=== PATIENT | male | born 1940 | race Caucasian/White ===

== ENCOUNTER 2021-07-18 17:57 | Inpatient (IN) | payer BC, OTHER ==
[~2021-07-18] VITALS: Ht 165.1 cm; Wt 67.6 kg
--- NOTE | 2021-07-18 18:10 | NUR ---
UMA MCLAUGHLIN FROM 4 SEASON C/O VOMITING AND ABNORMAL KUB RESULT. THE PATIENT IS ALERT AND ORIENTED X2. IN ROOM AIR AND DENIES SOB. RESPIRATION REGULAR AND UNLABORED. DENIES PAIN. ATTACHED TO THE MONITOR. WARM BLANKET PROVIDED FOR COMFORT. WILL CONTINUE TO MONITOR THE PATIENT.
--- NOTE | 2021-07-18 18:22 | NUR ---
IV LINE IS ESTABLISHED, BLOOD SPECIMEN COLLECTED AND SENT TO THE LAB. THE LINE IS SALINE LOCKED.
[2021-07-18] MEDS ORDERED: ONDANSETRON HCL/PF 4 MG/2 ML VIAL IVP ONE (18:30)
[2021-07-18 18:36] LABS: BASOPHILS % (AUTO) 0.7 % (0.0-2.0); EOSINOPHILS % (AUTO) 0.4 % (0.0-6.0); HEMATOCRIT 33 % (39-51); HEMOGLOBIN 10.6 g/dL (13.5-17.5); LYMPHOCYTES # (AUTO) 0.5 K/uL (0.8-4.8); LYMPHOCYTES % (AUTO) 6.8 % (20.0-44.0); MEAN CORPUSCULAR HGB CONC 32 g/dl (31.0-36.0); MEAN CORPUSCULAR VOLUME 89 fL (80-96); MONOCYTES # (AUTO) 0.4 K/uL (0.1-1.30); MONOCYTES % (AUTO) 5.2 % (2.0-12.0); NEUTROPHILS # (AUTO) 6.1 K/uL (1.8-8.9); NEUTROPHILS % (AUTO) 86.9 % (43.0-81.0); PLATELET COUNT (AUTO) 258 K/uL (150-450); RED BLOOD CELL COUNT(AUTO) 3.69 MIL/uL (4.5-6.0)
[2021-07-18] MEDS ORDERED: ONDANSETRON HCL/PF 4 MG/2 ML VIAL ONE (18:41)
--- NOTE | 2021-07-18 18:52 | NUR ---
UPDATED JAM ELLIS (ELDEST DAUGHTER)
[2021-07-18 18:58] LABS: ALANINE AMINOTRANSFERASE 13 U/L (12-78); ALBUMIN 1.9 g/dL (3.4-5.0); ALKALINE PHOSPHATASE 229 U/L (46-116); ASPARTATE AMINOTRANSFERASE 28 U/L (15-37); BILIRUBIN,DIRECT 0.2 mg/dL (0.0-0.2); BILIRUBIN,TOTAL 0.3 mg/dL (0.2-1.0); CALCIUM, SERUM 7.9 mg/dL (8.5-10.1); CARBON DIOXIDE 22 mmol/L (21-32); CHLORIDE 109 mmol/L (98-107); CREATININE 2.1 mg/dL (0.6-1.3); GLUCOSE 156 mg/dL (74-106); LIPASE 279 U/L (73-393); SODIUM SERUM 145 mmol/L (136-145); TOTAL PROTEIN, SERUM 6.2 g/dL (6.4-8.2); UREA NITROGEN, BLOOD 38 mg/dL (7-18)
--- NOTE | 2021-07-18 19:07 | NUR ---
GLEASON CATH FR [address] REES`S ORDER.
--- NOTE | 2021-07-18 19:14 | NUR ---
URINE COLLECTED AND SENT TO LAB
--- NOTE | 2021-07-18 19:15 | NUR ---
REPORT GIVEN TO NURSE JACK FOR RADHA
--- NOTE | 2021-07-18 19:54 | NUR ---
CHEN REYNA ON PHONE CALL WITH DR CAPONE
--- NOTE | 2021-07-18 19:57 | NUR ---
INSERTED 16FR NGT TO R NARE AT 60CM; CHECKED PLACEMENT VIA AUSCULTATION AND ASPIRATION. HEARD BUBBLING AND BROWN GI OUTPUT NOTED. ORDERED ABD KUB FOR PLACEMENT.
--- NOTE | 2021-07-18 20:20 | NUR ---
XRAY AT BEDSIDE
[2021-07-18] MEDS ORDERED: MORPHINE SULFATE INJ 2 MG/ML DISP.SYRIN IV PRN (21:00)
[2021-07-18] MEDS ORDERED: ONDANSETRON HCL/PF 4 MG/2 ML VIAL IVP PRN (21:00)
[2021-07-18] MEDS ORDERED: Z GUARD REMEDY 2 OZ OINT TP PRN (21:00)
[2021-07-18] MEDS ORDERED: MAGNESIUM HYDROXIDE 30 ML UDC PO PRN (21:00)
[2021-07-18] MEDS ORDERED: ACETAMINOPHEN 325 MG TABLET PO PRN (21:00)
[2021-07-18] MEDS ORDERED: MAG HYDROX/AL HYDROX/SIMETH 30 ML UDC PO PRN (21:00)
--- NOTE | 2021-07-18 22:54 | NUR ---
COVID RAPID AND PCR TEST TAKEN AND SENT FOR LAB
--- NOTE | 2021-07-18 23:32 | NUR ---
ASSIGNED TO [place] [id number]
--- NOTE | 2021-07-18 23:45 | NUR ---
REPORT GIVEN TO ANDREY ZAYAS FOR RADHA
--- NOTE | 2021-07-18 23:48 | NUR ---
URINE COLLECTED AND SENT TO LAB
--- NOTE | 2021-07-19 00:19 | NUR ---
PT TRANSFERRED TO [facility] VIA ACLS PROTOCOL
[2021-07-19 01:11] VITALS: BP 119/44
--- NOTE | 2021-07-19 01:18 | NUR ---
ADMISSION NOTES PATIENT ARRIVED AT 0015 VIA GURNEY WITH 2 RNS. AOx2. ON RA AND TOLERATING WELL. NO SOB NOTED. NO S/SX OF RESPIRATORY DISTRESS NOTED. IV ACCESS IN LAC #18. 16 MALTESE NG TUBE IN R NARE CONNECTED TO LOW INTERMITTENT SUCTION PER MD ORDER. GLEASON CATHETER IN PLACE DRAINING RED, CLEAR URINE. SAFETY PRECAUTIONS IN PLACE: BED IN LOWEST, LOCKED POSITION, SIDERAILS UPx2, AND BRAKES ON. TABLE AND CALL LIGHT WITHIN REACH. WILL CONTINUE TO MONITOR.
[2021-07-19] MEDS: IV D5/0.45 NACL 1,000 ML IV PRN ×2 (02:01→15:05)
[2021-07-19] MEDS ORDERED: DOCU-141 PO (06:15)
[2021-07-19] MEDS ORDERED: FERR325T28 PO (06:15)
[2021-07-19] MEDS ORDERED: LANS15TA5 PO (06:15)
[2021-07-19] MEDS ORDERED: TAMS-12 PO (06:15)
[2021-07-19] MEDS ORDERED: ATOR80TA PO (06:15)
[2021-07-19] MEDS ORDERED: SENN8.6T19 PO (06:15)
[2021-07-19] MEDS ORDERED: ASPI-1169 PO (06:15)
[2021-07-19] MEDS ORDERED: INSU100V39 SQ (06:15)
[2021-07-19] MEDS ORDERED: MULT-447 PO (06:15)
[2021-07-19] MEDS ORDERED: HYDR-4075 PO (06:15)
[2021-07-19] MEDS ORDERED: LIDOCAINE TD (06:15)
[2021-07-19] MEDS ORDERED: ASCO500C17 PO (06:15)
[2021-07-19] MEDS ORDERED: DIVA-78 PO (06:15)
--- NOTE | 2021-07-19 06:34 | NUR ---
RN CLOSING NOTES PT IN BED, ASLEEP, AWAKENS TO VERBAL STIMULI. AOx2. ON RA AND TOLERATING WELL. NO SOB NOTED. NO S/SX OF RESPIRATORY DISTRESS NOTED. IV ACCESS IN LAC #18. 16 ICELANDIC NG TUBE IN R NARE CONNECTED TO LOW INTERMITTENT SUCTION PER MD ORDER WITH ABOUT 800 ML OF BROWN DRAINAGE. GLEASON CATHETER IN PLACE DRAINING 300 ML OF BLOOD, TINGED, CLEAR URINE. ALL NEEDS MET. PT KEPT CLEAN AND DRY. SAFETY PRECAUTIONS IN PLACE: BED IN LOWEST, LOCKED POSITION, SIDERAILS UPx2, AND BRAKES ON. TABLE AND CALL LIGHT WITHIN REACH. WILL ENDORSE TO ONCOMING SHIFT FOR RADHA.
--- NOTE | 2021-07-19 07:15 | NUR ---
RN NOTE PATIENT OBSERVED ASLEEP IN BED, EASILY WAKEN UP, BREATHING EVEN AND UNLABORED, ON NGT WITH INTERMITTENT SUCTIONING, IV ON LEFT AC GAUGE 18 FLUSHING WELL, ON GLEASON CATHETER DRAINING VIA GRAVITY WITH HEMATURIA NOTED HX OF BPH, SAFETY MEASURE OBSERVED, BED WHEELS LOCK, CALL LIGHT WITHIN REACH, WILL CONTINUE TO MONITOR.
[2021-07-19 08:00] VITALS: BP 120/60
[2021-07-19 08:10] LABS: BILIRUBIN,URINE NEGATIVE (NEGATIVE); COLOR,URINE ORANGE (YELLOW); LEUKOCYTE ESTERASE ,URINE MODERATE (NEGATIVE); NITRITE, URINE NEGATIVE (NEGATIVE); PROTEIN,URINE 30 mg/dl (NEGATIVE); UGLUCOSE NEGATIVE (NEGATIVE); UROBILINOGEN,URINE 0.2 EU/dL (0.2)
[2021-07-19 09:17] LABS: BASOPHILS % (AUTO) 0.3 % (0.0-2.0); EOSINOPHILS % (AUTO) 0.1 % (0.0-6.0); HEMATOCRIT 28 % (39-51); HEMOGLOBIN 9.2 g/dL (13.5-17.5); LYMPHOCYTES # (AUTO) 0.6 K/uL (0.8-4.8); LYMPHOCYTES % (AUTO) 6.8 % (20.0-44.0); MEAN CORPUSCULAR HGB CONC 33 g/dl (31.0-36.0); MEAN CORPUSCULAR VOLUME 89 fL (80-96); MONOCYTES # (AUTO) 0.4 K/uL (0.1-1.30); MONOCYTES % (AUTO) 4.7 % (2.0-12.0); NEUTROPHILS # (AUTO) 8.3 K/uL (1.8-8.9); NEUTROPHILS % (AUTO) 88.1 % (43.0-81.0); PLATELET COUNT (AUTO) 232 K/uL (150-450); RED BLOOD CELL COUNT(AUTO) 3.18 MIL/uL (4.5-6.0); WHITE BLOOD COUNT (AUTO) 9.4 K/uL (4.3-11.0)
[2021-07-19] MEDS: PANTOPRAZOLE 40 MG VIAL IV SCH (09:27)
[2021-07-19 10:26] LABS: RBC,URINE TOO NUMEROUS TO COUN /HPF (0-2)
[2021-07-19 10:27] LABS: BACTERIA,URINE Few /HPF (None Seen); SQUAMOUS EPITHELIAL CELL,UR Few /HPF (None Seen); WBC,URINE 21-50 /HPF (0-3)
[2021-07-19 12:22] LABS: THYROID STIMULATING HORMONE 5.999 uIU/mL (0.358-3.74)
[2021-07-19 13:47] LABS: CARBON DIOXIDE 28 mmol/L (21-32); CHLORIDE 111 mmol/L (98-107); GLUCOSE 135 mg/dL (74-106); MAGNESIUM 2.2 mg/dL (1.8-2.4); PHOSPHORUS 3.7 mg/dL (2.5-4.9); POTASSIUM 3.7 mmol/L (3.5-5.1); SODIUM SERUM 149 mmol/L (136-145)
[2021-07-19 14:51] LABS: PROSTATE SPECIFIC ANTIGEN SCR 3107.29 ng/mL (0.00-4.00)
[2021-07-19 16:52] VITALS: BP 127/61
--- NOTE | 2021-07-19 17:15 | NUR ---
RN NOTE BMP RESULT STILL PENDING AT THIS TIME.
--- NOTE | 2021-07-19 18:50 | NUR ---
RN NOTE PATIENT OBSERVED ASLEEP IN BED, EASILY WAKEN UP, BREATHING EVEN AND UNLABORED, ON NGT WITH INTERMITTENT SUCTIONING, IV ON LEFT AC GAUGE 18 FLUSHING WELL WITH NS @75CC/HR, ON GLEASON CATHETER DRAINING VIA GRAVITY, SAFETY MEASURE OBSERVED, BED WHEELS LOCK, CALL LIGHT WITHIN REACH, WILL ENDORSE TO NOC SHIFT. Addendum: 07/19/21 at 1852 by CHARAN SANDOVAL RN ERROR
--- NOTE | 2021-07-19 18:53 | NUR ---
RN NOTE PATIENT OBSERVED ASLEEP IN BED, EASILY WAKEN UP, BREATHING EVEN AND UNLABORED, ON NGT WITH INTERMITTENT SUCTIONING, IV ON LEFT AC GAUGE 18 FLUSHING WELL WITH D5 1/2NS @75CC/HR, ON GLEASON CATHETER DRAINING VIA GRAVITY, SAFETY MEASURE OBSERVED, BED WHEELS LOCK, CALL LIGHT WITHIN REACH, WILL ENDORSE TO NOC SHIFT.
[2021-07-19 19:10] LABS: CALCIUM, SERUM 8.4 mg/dL (8.5-10.1); CREATININE 1.4 mg/dL (0.6-1.3); UREA NITROGEN, BLOOD 29 mg/dL (7-18)
--- NOTE | 2021-07-19 19:20 | NUR ---
RN OPENING NOTES PATIENT RECEIVED IN BED ALERT AND VERBALLY RESPONSIVE RESPIRATORY EVEN AND UNLABORED, NO SIGN AND SYMPTOMS OF SOB OR DISTRESS, PATIENT IS ON ROOM AIRL, SAT 94%, IV PLACE ON THE LEFT AC #18 RUNNING D5 1/2NS 75ML/HR. PATIENT NOTED WITH NG TUBE INSERTED ON RIGHT NOSTRIL, ON INTERMITTENT SUCTION. PATIENT ON NPO. SAFETY MEASURES IN PLACE BED ALARM ON LOCKED AND IN LOWEST POSITION CALL LIGHT WITHIN REACH WILL CONTINUE TO MONITOR
[2021-07-20] VITALS: BP 127/61
[2021-07-20 04:00] VITALS: BP 138/62
--- NOTE | 2021-07-20 05:30 | NUR ---
RN NOTES PATIENT REFUSED FOR BLOOD DRAW, OFFERED 3X, EXPLAINED RISK AND BENEFITS, STILL REFUSED. WILL ENDORSED TO NEXT SHIFT
[2021-07-20] MEDS: IV D5/0.45 NACL 1,000 ML IV PRN (06:22)
--- NOTE | 2021-07-20 06:52 | NUR ---
RN CLOSING NOTES PATIENT REMAIN STABLE THROUGH OUT THE SHIFT, RESPIRATORY EVEN AND UNLABORED, NO SIGN AND SYMPTOMS OF SOB OR DISTRESS, PATIENT IS ON ROOM AIRL, SAT 94%, IV PLACE ON THE LEFT AC #18 RUNNING D5 1/2NS 75ML/HR. PATIENT ON NPO. SAFETY MEASURES IN PLACE BED ALARM ON LOCKED AND IN LOWEST POSITION CALL LIGHT WITHIN REACH WILL CONTINUE TO MONITOR
--- NOTE | 2021-07-20 08:03 | NUR ---
RN OPENING NOTES PATIENT RECEIVED IN BED ALERT AND VERBALLY RESPONSIVE RESPIRATORY EVEN AND UNLABORED, NO SIGN AND SYMPTOMS OF SOB OR DISTRESS, PATIENT IS ON ROOM AIRL, SAT 97%, IV PLACE ON THE LEFT AC #18 RUNNING D5 1/2NS 75ML/HR. PATIENT NOTED WITH NG TUBE INSERTED ON RIGHT NOSTRIL, ON INTERMITTENT SUCTION. PATIENT ON NPO. SAFETY MEASURES IN PLACE BED ALARM ON LOCKED AND IN LOWEST POSITION CALL LIGHT WITHIN REACH WILL CONTINUE TO MONITOR
[2021-07-20] MEDS: PANTOPRAZOLE 40 MG VIAL IV SCH (08:26)
[2021-07-20 12:00] VITALS: BP 138/62
[2021-07-20] MEDS ORDERED: DIATR MEGLU/DIATRIZOATE SODIUM 120 ML BOTTLE (GASTROGRAPHIN) ONE (13:44)
--- NOTE | 2021-07-20 13:55 | NUR ---
RN NOTES SMALL BOWEL FOLLOW UP STARTED [id number]
--- NOTE | 2021-07-20 18:45 | NUR ---
RN CLOSING NOTES PATIENT REMAINS STABLE THROUGH OUT THE SHIFT, RESPIRATORY EVEN AND UNLABORED, NO SIGN AND SYMPTOMS OF SOB OR DISTRESS, PATIENT IS ON ROOM AIR, SATING 95-100%. PATIENT ON NPO. SAFETY MEASURES IN PLACE, BED ALARM ON, BED LOCKED AND IN LOWEST POSITION, CALL LIGHT WITHIN REACH. WILL ENDORSE TO HIGHWAY ENGINEERING TECHNICIAN NURSE. Addendum: 07/20/21 at 1857 by ROBBIN RICKETTS RN NURSING SIGNAL PERSON NOTIFIED ABOUT MIDLINE. WILL ENDORSE TO HIGHWAY ENGINEERING TECHNICIAN NURSE.
--- NOTE | 2021-07-20 19:25 | NUR ---
RN NOTE PT RECEIVED IM BED. PT IS ALERT AND ORIENTED X2-3. PT CURRENTLY ON ROOM AIR SHOWING NO S/S OF RESP DISTRESS/SOB. BREATHING EVEN AND UNLABORED. GLEASON CATH NOTED. CURRENTLY NPO. ALL SAFETY MEASURES IMPLEMENTED. CALL LIGHT WITHIN REACH. BED ALARM ON. BED LOCKED AND IN LOWEST POSITION. SIDE RAILS UP. WILL CONTINUE TO MONITOR AND ASSESS FOR ANY CHANGES DURING SHIFT,.
[2021-07-20 20:00] VITALS: BP 127/55
[2021-07-21 04:00] VITALS: BP 137/58
[2021-07-21] MEDS: IV D5/0.45 NACL 1,000 ML IV PRN (05:47)
--- NOTE | 2021-07-21 06:59 | NUR ---
RN NOTE NO CHANGES IN PT CONDITION DURING SHIFT. PT CURRENTLY ON ROOM AIR SHOWING NO S/S OF RESP DISTRESS/SOB. BREATHING EVEN AND UNLABORED. PT IS ALERT AND ORIENTED X2-3. IV ACCESS NOTED ON RIGHT FOREARM #22, LINE FLUSHED, PATENT, AND INTACT WITH NO SIGNS OF INFILTRATION. D51/2 NS RUNNING AT 75 ML/HR. PT TOLERATING WELL. CURRENTLY WAITING FOR MIDLINE PLACEMENT. ALL DUE MEDS GIVEN ORDERED. PT KEPT CLEAN AND COMFORTABLE. ALL SAFETY MEASURES IMPLEMENTED. CALL LIGHT WITHIN REACH. BED ALARM ON. BED LOCKED AND IN LOWEST POSITION. SIDE RAILS UP. WILL ENDORSE TO MORNING SHIFT RN FOR RADHA.
--- NOTE | 2021-07-21 07:25 | NUR ---
RN OPENING NOTES PATIENT RECEIVED IN BED SLEEPING BREATHING EVEN AND UNLABORED, NO SIGN AND SYMPTOMS OF SOB OR DISTRESS, PATIENT IS ON ROOM AIR. IV ACCESS ON THE RIGHT FOREARM #22, INTACT AND PATENT INFUSING D5 1/2NS 75ML/HR. NO S/S OF INFILTRATION. PATIENT NOTED WITH NG TUBE INSERTED ON INTERMITTENT SUCTION. PATIENT ON NPO. GLEASON CATH INTACT, DRAINING WELL. SAFETY MEASURES IMPLEMENTED. BED ALARM ON LOCKED AND IN LOWEST POSITION CALL LIGHT WITHIN REACH WILL CONTINUE TO MONITOR.
[2021-07-21] MEDS: PANTOPRAZOLE 40 MG VIAL IV SCH (08:57)
[2021-07-21] MEDS: FOLIC ACID 1 MG TABLET PO SCH (09:00)
[2021-07-21] MEDS: MUPIROCIN OINT 2% 22 GM TUBE TP SCH ×2 (10:39→21:31)
[2021-07-21 12:00] VITALS: BP 141/65
[2021-07-21 15:23] LABS: BASOPHILS % (AUTO) 0.4 % (0.0-2.0); EOSINOPHILS % (AUTO) 0.5 % (0.0-6.0); HEMATOCRIT 25 % (39-51); HEMOGLOBIN 8.3 g/dL (13.5-17.5); LYMPHOCYTES # (AUTO) 0.7 K/uL (0.8-4.8); MEAN CORPUSCULAR HGB CONC 33 g/dl (31.0-36.0); MEAN CORPUSCULAR VOLUME 89 fL (80-96); MONOCYTES # (AUTO) 0.6 K/uL (0.1-1.30); MONOCYTES % (AUTO) 7.7 % (2.0-12.0); NEUTROPHILS # (AUTO) 6.5 K/uL (1.8-8.9); NEUTROPHILS % (AUTO) 82.4 % (43.0-81.0); PLATELET COUNT (AUTO) 197 K/uL (150-450); RED BLOOD CELL COUNT(AUTO) 2.79 MIL/uL (4.5-6.0); WHITE BLOOD COUNT (AUTO) 7.8 K/uL (4.3-11.0)
[2021-07-21 16:00] LABS: CALCIUM, SERUM 7.6 mg/dL (8.5-10.1); CREATININE 0.8 mg/dL (0.6-1.3)
[2021-07-21 16:06] LABS: POTASSIUM 2.4 mmol/L (3.5-5.1)
--- NOTE | 2021-07-21 16:30 | NUR ---
RN NOTE RECEIVED CALL FROM LAB WITH CRITICAL LAB VALUE POTASSIUM OF 2.4. OBTAINED NEW ORDERS PER MD, NOTED AND CARRIED OUT.
[2021-07-21 16:47] LABS: BAND % (MANUAL) 1 % (0.0-5.0); EOSINOPHILS % (MANUAL) 1 % (0-4); LYMPHOCYTES % (MANUAL) 3 % (16-48); MONOCYTES % (MANUAL) 3 % (0-11.0); NEUTROPHILS % (MANUAL) 92 (42-76)
[2021-07-21] MEDS: POTASSIUM CL. PREMIX PERIPHER. 50 ML IV SCH ×5 (16:47→21:28)
--- NOTE | 2021-07-21 18:35 | NUR ---
RN CLOSING NOTES PATIENT REMAINS IN STABLE CONDITION THROUGHOUT SHIFT. PATIENT ALERT/ ORIENTED X 2. BREATHING EVEN AND UNLABORED ON ROOM AIR. IV ACCESS ON RIGHT FOREARM INFUSING D5 1/2 NS @ 75 ML/HT, TOLERATING WELL. PATIENT ON NGT WITH INTERMITTENT SUCTIONING, TOLERATING WELL. ALL DUE MEDS GIVEN ORDERED. GLEASON CATHETER INTACT AND DRAINING WELL. ALL SAFETY MEASURES IN PLACED. BED LOCKED, IN LOWEST POSITION WITH SIDE RAILS UP. CALL LIGHT WITHIN REACH. WILL ENDORSE TO NEXT SHIFT FOR CONTINUITY OF CARE.
--- NOTE | 2021-07-21 19:20 | NUR ---
RN OPENING NOTES PATIENT RECEIVED IN BED ALERT AND VERBALLY RESPONSIVE RESPIRATORY EVEN AND UNLABORED, NO SIGN AND SYMPTOMS OF SOB OR DISTRESS, PATIENT IS ON ROOM AIR, SAT 94%, IV PLACE ON THE RIGHT FORE ARM #22 RUNNING D5 1/2NS 75ML/HR. PATIENT NOTED WITH NG TUBE INSERTED ON RIGHT NOSTRIL, ON INTERMITTENT SUCTION. PATIENT ON NPO. GLEASON CATHETER IN PLACED, INTACT AND DRAINING WELL. SAFETY MEASURES IN PLACE BED ALARM ON LOCKED AND IN LOWEST POSITION CALL LIGHT WITHIN REACH WILL CONTINUE TO MONITOR
[2021-07-21 20:00] VITALS: BP 128/61
--- NOTE | 2021-07-22 01:10 | NUR ---
0110 Report given to MARQUEZ Nolasco for transfer of care with questions answered.
--- NOTE | 2021-07-22 01:30 | NUR ---
RN NOTE RECEIVED PT FROM [facility] TO RM.312-1 ACCOMPANIED BY SET DESIGNER. PT AWAKE, ALERT, DOES NOT VERBALIZE BUT NODS OR SHAKES HEAD AND USES HAND GESTURES. PT ON ROOM AIR, WITH RESPIRATIONS EVEN/UNLABORED. IV ACCESS: L-FA G22 INTACT/PATENT AND FLUSHES WELL. STARTED D5 1/2 NS @75ML/HR ORDERED. APPLIED MARLEY-SLEEVES FOR SKIN PROTECTION AND TO PREVENT FROM PULLING OUT IV. WITH F/C IN PLACE, DRAINING CLEAR NAKIA URINE. PT IN NO ACUTE DISTRESS. SAFETY MEASURES IN PLACE. WILL CONT TO MONITOR. Addendum: 07/22/21 at 0343 by MARILEE TEE RN PT WITH NGT TO INTERMITTENT SUCTION
[2021-07-22] MEDS: IV D5/0.45 NACL 1,000 ML IV PRN (01:56)
[2021-07-22 02:06] VITALS: BP 148/52
[2021-07-22 06:31] LABS: BASOPHILS % (AUTO) 0.6 % (0.0-2.0); HEMATOCRIT 26 % (39-51); HEMOGLOBIN 8.5 g/dL (13.5-17.5); LYMPHOCYTES # (AUTO) 0.8 K/uL (0.8-4.8); LYMPHOCYTES % (AUTO) 10.4 % (20.0-44.0); MEAN CORPUSCULAR HGB CONC 32 g/dl (31.0-36.0); MEAN CORPUSCULAR VOLUME 90 fL (80-96); MONOCYTES # (AUTO) 0.5 K/uL (0.1-1.30); MONOCYTES % (AUTO) 6.2 % (2.0-12.0); NEUTROPHILS # (AUTO) 6.1 K/uL (1.8-8.9); NEUTROPHILS % (AUTO) 81.8 % (43.0-81.0); PLATELET COUNT (AUTO) 193 K/uL (150-450); RED BLOOD CELL COUNT(AUTO) 2.95 MIL/uL (4.5-6.0); WHITE BLOOD COUNT (AUTO) 7.4 K/uL (4.3-11.0)
[2021-07-22 06:50] LABS: CALCIUM, SERUM 8.2 mg/dL (8.5-10.1); CREATININE 0.8 mg/dL (0.6-1.3)
--- NOTE | 2021-07-22 06:55 | NUR ---
RN NOTE NOTED IV PULLED OUT. REINSERTED IV ACCESS TO L-AC #22G WITH GOOD BLOOD RETURN AND HREBER. WELL. Addendum: 07/22/21 at 0657 by MARILEE TEE RN ERROR ON NOTE: REINSERTED IV ACCESS TO R-AC, NOT L-AC
[2021-07-22 07:07] LABS: IMMUNOGLOBULIN A, SERUM 453 mg/dL (61-437); IMMUNOGLOBULIN G, SERUM 943 mg/dL (603-1613); IMMUNOGLOBULIN M, SERUM 51 mg/dL (15-143)
--- NOTE | 2021-07-22 07:10 | NUR ---
RN NOTE PT RESTING IN BED, EASILY AROUSABLE TO STIMULI. A/OX1, OCCASIONALLY VERBALIZES BUT WITH CONFUSION. REORIENTATION PROVIDED. NO S/S OF PAIN NOTED. IV SITE R-AC INTACT/PATENT. NGT INTACT, CONNECTED TO LOW INTERMITTENT SUCTION. F/C INTACT,DRAINING CLEAR YELLOW, OUTPUT 350ML THIS SHIFT. PT IN NO ACUTE DISTRESS. SAFETY MEASURES MAINTAINED. ENDORSED TO NEXT SHIFT NURSE.
--- NOTE | 2021-07-22 07:30 | NUR ---
RN OPEN NOTE PT RECEIVED RESTING IN BED, EASILY AROUSABLE TO STIMULI. A/OX1, WITH CONFUSION. REORIENTATION PROVIDED. NO SOB OR DISTRESS NOTED AT THIS TIME BREATHING EVEN AND UNLABORED, NO S/S OF PAIN NOTED. IV SITE R-AC INTACT/PATENT. NGT INTACT, CONNECTED TO LOW INTERMITTENT SUCTION. F/C INTACT,DRAINING CLEAR YELLOW AND BELOW THE PT, SAFETY MEASURES MAINTAINED. BED LOCKED AND IN LOWEST POSITION WILL CONTINUE TO MONITOR
[2021-07-22 08:00] VITALS: BP 142/68
[2021-07-22 08:09] LABS: POTASSIUM 2.8 mmol/L (3.5-5.1)
[2021-07-22] MEDS: FOLIC ACID 1 MG TABLET PO SCH (08:46)
[2021-07-22] MEDS: PANTOPRAZOLE 40 MG VIAL IV SCH (08:46)
--- NOTE | 2021-07-22 08:48 | NUR ---
PT IS COMBATIVE AND REFUSED THE EXAM. RNKM WILL INFORM THE ORDERING MD.
[2021-07-22] MEDS: BICALUTAMIDE 50 MG TABLET PO SCH (09:00)
[2021-07-22 09:07] LABS: *SPE A/G RATIO 0.7 (0.7-1.7); *SPE ALPHA-1-GLOBULIN 0.3 g/dL (0.0-0.4); *SPE ALPHA-2-GLOBULIN 0.9 g/dL (0.4-1.0); *SPE BETA GLOBULIN 0.9 g/dL (0.7-1.3); *SPE M-SPIKE Not Observed g/dL (Not Observed)
--- NOTE | 2021-07-22 09:45 | NUR ---
RN NOTE PT REFUSED ULTRASOUND FOR THE KIDNEYS DOCTOR IS AWARE, PT IS COMBATIVE AND ALSO REFUSING MEDS, WILL CONTINUE TO MONITOR
[2021-07-22] MEDS: MUPIROCIN OINT 2% 22 GM TUBE TP SCH ×2 (09:54→20:33)
--- NOTE | 2021-07-22 10:00 | NUR ---
RN NOTE POTASSIUM IV STARTED WILL CONTINUE TO MONITOR
[2021-07-22] MEDS: POTASSIUM CL. PREMIX PERIPHER. 50 ML IV SCH ×10 (10:08→23:13)
--- NOTE | 2021-07-22 11:56 | NUR ---
PT NOTE STAT EKG RESULTS GIVEN TO MARQUEZ KRISHNAMURTHY. Addendum: 07/22/21 at 1157 by FRANCESCA HUNT RT RT NOTE
--- NOTE | 2021-07-22 12:00 | NUR ---
m/s wooden shade hardware installer: notes stat ekg done and dr. campbell made aware with no new order.
--- NOTE | 2021-07-22 12:15 | NUR ---
m/s system dispatcher: notes pharmacist notified, spoke to herson re: potassium chloride ivpb with a total of 10 bags. per herson (pharmacist) that she has spoken to dr. campbell and verified with him and says he wants a total of 100meqs.
--- NOTE | 2021-07-22 12:30 | NUR ---
SS Consult: SS consult requested regarding Advanced Directive. The pt. is a 81 year old male admitted to [facility] for symptoms of vomiting & abnormal KUB. BHARATH met with pt. bedside. The pt. is alert & oriented x 3 with recent stoke 2 .5 weeks ago per son. The pt. 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 BHARATH met with pt.'s next of kin/son, Román Ramesh [phone] to discuss advanced healthcare directive. BHARATH educated Román AguirreTheo about it and he stated pt. has initiated the process at [facility]. SW spoke with pt. and pt. expressed that he would like to remain full code and would want his son, Román Guillen to make medical decisions on his behalf int he even that he can no longer make those decisions. Pt. stated he is willing to sign advanced directive to make it official. BHARATH provided Román AguirreTheo with advanced directive & educational material as well as number of mobile notary. Román Guillen expressed understanding. BHARATH also provided [facility] educational material and number to [facility] [phone] Román Guillen thanked BHARATH. Plan: Román AguirreTheo stated the pt. currently is residing at his sister, Sulma Ramesh [phone] home [[address] [place] [phone]] and will be returning there when ready for discharge. Per Román Guillen he does not want to dupree into it and will have pt. completed advanced directive when he is ready. BHARATH wll be available as needed.
--- NOTE | 2021-07-22 15:13 | NUR ---
m/s traffic control officer: general surgeon f/u seen and examined by pat (diesel bus mechanic) at this time with new orders. orders acknowledged.
[2021-07-22 16:00] VITALS: BP 141/72
--- NOTE | 2021-07-22 16:30 | NUR ---
m/s boiler service technician: director of optimization f/u seen by theron (maria luisa) at this time and informed her to call the son for updates.
--- NOTE | 2021-07-22 17:30 | NUR ---
m/s surface miner: notes abby beyer notified re: ct chest/abdomen/pelvis with contrast order for tomorrow and provided consent over the phone with another nurse as a witnessed. per abby beyer, heath (maria luisa) called him and updated him over the phone earlier.
--- NOTE | 2021-07-22 19:00 | NUR ---
m/s fur dressing supervisor: notes bedside report given to ha (rn) and endorse the 3 more bags of potassium chloride to be given.
--- NOTE | 2021-07-22 20:47 | NUR ---
MS RN OPENING NOTE: RECEIVED REPORT AT PATIENT'S BEDSIDE. PATIENT IS COMMUNICATIVE AND VERBALIZING NEEDS EFFECTIVELY. NAD AND VSS AT THIS TIME. NGT TO LOW INTERMITTENT SUCTION OBSERVED. K+ INFUSING TO R AC 22 GAUGE -- SITE IS PATENT, NO S/X OF INFILTRATION OR PHLEBITIS. DENIES N/V. ABD NON-DISTENDED AND BS AUSCULTATED X4. FREQUENTLY USED ITEMS AND CALL LIGHT WITHIN REACH.
[2021-07-22 20:50] VITALS: BP 130/56
--- NOTE | 2021-07-23 00:59 | NUR ---
MS RN NOTES: DISCUSSED WITH PATIENT MD ORDERS FOR CT WITH CONTRAST. PATIENT STATES, "I'M NOT GOING TO SIGN ANYTHING." I EXPLAINED TO THE PATIENT HE HAS RECEIVED A CT SCAN DURING THIS HOSPITALIZATION, THE DIFFERENCE BEING CONTRAST DYE AND THE RISKS OF A SERIOUS REACTION ARE VERY SELDOM AND ARE TREATED WITH MEDICATIONS. PATIENT STATES, "I'LL THINK ABOUT IT." CALL MADE TO PATIENT'S SON (JOON), WENT TO [place]. LEFT A MESSAGE.
--- NOTE | 2021-07-23 03:14 | NUR ---
MS RN NOTES: REVIEWED PATIENT'S PAPER CHART. PATIENT'S SON (RP) CONTACTED BY PREVIOUS SHIFT NURSE. SON CONSENTED TO CT WITH CONTRAST D/T PATIENT'S FLUCTUATING MENTATION/PERIODS OF FORGETFULNESS/CONFUSION.
--- NOTE | 2021-07-23 05:00 | NUR ---
MS RN NOTES: PATIENT SCHEDULED FOR CT WITH CONTRAST THIS AM. CHARGE NURSE ACCESSED IV TO R AC #20 GAUGE AFTER 3RD ATTEMPT FROM OTHER GENERAL CLERK.
--- NOTE | 2021-07-23 05:48 | NUR ---
MS RN NOTE: PATIENT FLAILING ARMS, ADAMANTLY REFUSING BLOOD DRAW FROM ASSOCIATE RELATIONS SPECIALIST FOR AM LABS. "NO MORE!! NO MORE!!"
--- NOTE | 2021-07-23 07:30 | NUR ---
MS RN OPENING NOTES RECEIVED Pt LAYING IN BED AWAKE. Pt IS A/O x 2-3. BREATHING ON ROOM AIR AND TOLERATING WELL. NO COMPLAINTS OF PAIN MADE AT THIS TIME, NO SIGNS OF DISTRESS NOTICED. SAFETY MEASURES ARE IN PLACE: BED IS LOCKED AND IN LOWEST POSITION. SIDE RAILS UP x3. BED ALARM IS ON. CALL LIGHT AND BED SIDE TABLE ARE WITHIN REACH. WILL CONTINUE TO MONITOR THROUGHOUT THE SHIFT.
[2021-07-23 08:00] VITALS: BP 152/59
[2021-07-23] MEDS ORDERED: CT SWABBABLE VALVE TRANS SET 1 EA INFUS.SET MC ONE (08:24)
[2021-07-23] MEDS ORDERED: IOHEXOL-300 100 ML VIAL IV ONE (08:24)
[2021-07-23] MEDS ORDERED: IV NS 0.9% 250 ML IV ONE (08:24)
[2021-07-23] MEDS: BICALUTAMIDE 50 MG TABLET PO SCH ×2 (09:00→09:55)
[2021-07-23] MEDS: FOLIC ACID 1 MG TABLET PO SCH ×2 (09:00→09:55)
[2021-07-23] MEDS: MUPIROCIN OINT 2% 22 GM TUBE TP SCH ×2 (09:55→20:35)
[2021-07-23] MEDS: PANTOPRAZOLE 40 MG VIAL IV SCH (09:58)
[2021-07-23] MEDS ORDERED: PANTOPRAZOLE 40 MG TABLET.DR PO SCH (10:00)
--- NOTE | 2021-07-23 10:10 | NUR ---
MS RN NOTES Pt IS STILL NPO. NO PO MEDS GIVEN THIS AM. WILL CONTINUE TO MONITOR.
[2021-07-23] MEDS: ENOXAPARIN SODIUM 60 MG/0.6 ML DISP.SYRIN SQ SCH ×2 (11:16→21:00)
--- NOTE | 2021-07-23 11:52 | NUR ---
MS RN NOTES Pt REFUSED AM LABS FOR THE SECOND TIME TODAY.
--- NOTE | 2021-07-23 14:41 | NUR ---
MS RN NOTES Pt STILL REFUSING BLOOD DRAW FOR LAB
[2021-07-23 16:00] VITALS: BP 143/62
--- NOTE | 2021-07-23 18:29 | NUR ---
MS RN CLOSING NOTES Pt IS IN BED RESTING. A/x3. BREATHING ON ROOM AIR AND TOLERATING WELL. Pt HAS 2 IV ACCESS ON R AC. PATENT AND INTACT. NO SIGNS OF DISTRESS AT THIS TIME AND NO COMPLAINTS OF PAIN MADE. ALL NEEDS MET. SAFETY MEASURES ARE IN PACE: BED IS LOCKED AND IN LOWEST POSITION, SIDE RAILS UP X 3, CALL LIGHT AND BED SIDE TABLE ARE WITHIN REACH. WILL ENDORSE TO ONCOMING SHIFT.
[2021-07-23 20:00] VITALS: BP 142/50
--- NOTE | 2021-07-23 23:41 | NUR ---
MS RN NOTES LOVENOX NOT ADMIN NO CURRENT LABS AND POSSIBLE THORACENTESIS IN AM.
[2021-07-24] MEDS: IV D5/0.45 NACL 1,000 ML IV PRN (00:53)
--- NOTE | 2021-07-24 06:30 | NUR ---
MS RN CLOSING NOTES Pt IS IN BED RESTING. A/x2-3. BREATHING ON ROOM AIR AND TOLERATING WELL. Pt HAS 2 IV ACCESS. ONE ON R AC AND L FA. THEY ARE PATENT AND INTACT. NO SIGNS OF DISTRESS AT THIS TIME AND NO COMPLAINTS OF PAIN MADE. NG TUBE TO LOW INTERMITTENT SUCTION. ALL NEEDS MET. SAFETY MEASURES ARE IN PACE: BED IS LOCKED AND IN LOWEST POSITION, SIDE RAILS UP X 3, CALL LIGHT AND BED SIDE TABLE ARE WITHIN REACH. WILL ENDORSE TO ONCOMING SHIFT.
--- NOTE | 2021-07-24 07:30 | NUR ---
RN MS NOTES PT IN BED, AWAKE, ALERT AND VERBALLY RESPONSIVE, DENIES PAIN, NOT IN DISTRESS, NGT IN PLACE, NO DRAIN NOTED, CALL LIGHT WITHIN REACH, KEPT WARM AND COMFORTABLE IN BED, F/C IN PLACE.
[2021-07-24 08:00] VITALS: BP 148/59
--- NOTE | 2021-07-24 08:41 | NUR ---
CALLED MARQUEZ PARRA AT 7.[address] AN ORDER FOR INR, PER RN PATIENT REFUSING LABS, FOLLOW UP
[2021-07-24] MEDS: PANTOPRAZOLE 40 MG VIAL IV SCH (08:58)
[2021-07-24] MEDS: ENOXAPARIN SODIUM 60 MG/0.6 ML DISP.SYRIN SQ SCH ×3 (08:58→21:00)
[2021-07-24] MEDS: MUPIROCIN OINT 2% 22 GM TUBE TP SCH ×2 (08:59→21:00)
[2021-07-24] MEDS: FOLIC ACID 1 MG TABLET PO SCH (09:17)
[2021-07-24] MEDS: BICALUTAMIDE 50 MG TABLET PO SCH (09:17)
--- NOTE | 2021-07-24 10:56 | NUR ---
RN MS NOTES RECEIVED ORDER FROM DR. OLGUIN TO CLAMP NGT AND TO START CLEAR LIQUID DIET, INFORMED OF PT'S REFUSAL TO DRAW AM LABS, PT TOLERATES CURRENT DIET AT THIS TIME, NO N/V NOTED.
[2021-07-24 15:56] LABS: BASOPHILS # (AUTO) 0.1 K/uL (0.0-0.2); BASOPHILS % (AUTO) 1.3 % (0.0-2.0); EOSINOPHILS % (AUTO) 1.9 % (0.0-6.0); HEMATOCRIT 29 % (39-51); HEMOGLOBIN 9.5 g/dL (13.5-17.5); LYMPHOCYTES # (AUTO) 0.8 K/uL (0.8-4.8); LYMPHOCYTES % (AUTO) 12.8 % (20.0-44.0); MEAN CORPUSCULAR HGB CONC 32 g/dl (31.0-36.0); MEAN CORPUSCULAR VOLUME 90 fL (80-96); MONOCYTES # (AUTO) 0.4 K/uL (0.1-1.30); MONOCYTES % (AUTO) 5.6 % (2.0-12.0); NEUTROPHILS # (AUTO) 5.1 K/uL (1.8-8.9); NEUTROPHILS % (AUTO) 78.4 % (43.0-81.0); PLATELET COUNT (AUTO) 230 K/uL (150-450); RED BLOOD CELL COUNT(AUTO) 3.26 MIL/uL (4.5-6.0); WHITE BLOOD COUNT (AUTO) 6.5 K/uL (4.3-11.0)
[2021-07-24 16:00] VITALS: BP 123/51
[2021-07-24 16:30] LABS: CARBON DIOXIDE 28 mmol/L (21-32); CHLORIDE 110 mmol/L (98-107); CREATININE 0.8 mg/dL (0.6-1.3); GLUCOSE 82 mg/dL (74-106); POTASSIUM 3.8 mmol/L (3.5-5.1); SODIUM SERUM 147 mmol/L (136-145); UREA NITROGEN, BLOOD 8 mg/dL (7-18)
[2021-07-24 16:34] LABS: MAGNESIUM 1.8 mg/dL (1.8-2.4); PHOSPHORUS 3.2 mg/dL (2.5-4.9)
--- NOTE | 2021-07-24 17:51 | NUR ---
INR 1.72 HIGH FOR THORACENTESIS. JÚNIOR ZAYAS INFORMED TO NOTIFY THE ORDERING MD. PATHOLOGIST NOT AVAILABLE OVER THE WEEKEND, RN WAS INFORMED. LEFT CLAVICLE SOF TISSUE BIOPSY WILL BE DONE ON WEDNESDAY. JÚNIOR ZAYAS WILL INFORM THE ORDERING PHYSICIAN.
--- NOTE | 2021-07-24 18:16 | NUR ---
RN MS NOTES PT IN BED, AWAKE, ALERT AND VERBALLY RESPONSIVE, NO COMPLAINT AT THIS TIME, SEEN BY DR. OLGUIN AND DR. SKINNER, PT STARTED ON CLEAR LIQUID DIET, TOLERATES WELL, NO N/V NOTED, CONSENT GIVEN BY SON JOON RILEY OVER THE PHONE FOR US GUIDED NEEDLE BIOPSY, LOVENOX HELD FOR NOW.
[2021-07-24 18:46] LABS: ALANINE AMINOTRANSFERASE 20 U/L (12-78); ALBUMIN 1.9 g/dL (3.4-5.0); ALKALINE PHOSPHATASE 250 U/L (46-116); ASPARTATE AMINOTRANSFERASE 46 U/L (15-37); BILIRUBIN,TOTAL 0.8 mg/dL (0.2-1.0); TOTAL PROTEIN, SERUM 6.2 g/dL (6.4-8.2)
--- NOTE | 2021-07-24 19:17 | NUR ---
MS RN OPENING NOTES: RECEIVED REPORT AT PATIENT'S BEDSIDE. PATIENT ALERT AND ORIENTED X2, IN NAD AND VSS AT THIS TIME. COMMUNICATIVE AND VERBALIZING NEEDS EFFECTIVELY. NO C/O N/V. NO C/O PAIN. FREQUENTLY USED ITEMS AND CALL LIGHT WITHIN REACH.
[2021-07-24 20:00] VITALS: BP 144/67
[2021-07-25] MEDS: IV D5/0.45 NACL 1,000 ML IV PRN (04:58)
--- NOTE | 2021-07-25 05:32 | NUR ---
MS RN NOTES: I WENT INTO PATIENT'S ROOM AFTER ONLINE MERCHANDISER INFORMED ME PATIENT REFUSING AM BLOOD DRAW. PATIENT ADAMANTLY REFUSING BLOOD DRAW DESPITE RE-APPROACH. PATIENT YELLING, "NO! NO BLOOD!" REPEATEDLY AND FLAILING ARMS.
--- NOTE | 2021-07-25 06:50 | NUR ---
MS RN CLOSING NOTES: \ PATIENT SLEEPING, EYES CLOSED, RR EVEN AND UNLABORED. PATIENT EASILY AGITATED THROUGHOUT THE EVENING. NAD AND VSS AT THIS TIME. R AC #18 RUNNING D5 1/2 NS @ 75ML/HR. NO INFILTRATION AND NO S/SX OF INFECTION TO OR SURROUNDING INSERTION SITE. DRESSING CDI. L FA #18 SL; FLUSHED AND PATENT. NO INFILTRATION. NO S/SX OF INFECTION TO OR SURROUNDING INSERTION SITE. DENIES PAIN. MENTATION FLUCTUATES FROM A&OX2-3. BOWEL SOUNDS NORMOACTIVE X4. BED IN LOW, LOCKED POSITION, IV PUMP AND BED ALARM ON. CALL LIGHT AND FREQUENTLY USED ITEMS WITHIN REACH.
--- NOTE | 2021-07-25 07:27 | NUR ---
RN OPENING NOTE-PATIENT ALERT AND ORIENTED TO PERSON PLACE ONLY, CONFUSED. GLEASON CATHETER TO GRAVITY. NO C/O PAIN. NO DISCOMFORT NOTED. BED LOCKED, LOWEST POSITION, CALL LIGHT WITHIN REACH. MONITOR / ASSIST
[2021-07-25 08:30] VITALS: BP 151/66
[2021-07-25] MEDS: BICALUTAMIDE 50 MG TABLET PO SCH (08:44)
[2021-07-25] MEDS: ENOXAPARIN SODIUM 60 MG/0.6 ML DISP.SYRIN SQ SCH ×3 (08:44→13:51)
[2021-07-25] MEDS: FOLIC ACID 1 MG TABLET PO SCH (08:44)
[2021-07-25] MEDS: PANTOPRAZOLE 40 MG VIAL IV SCH (08:44)
[2021-07-25] MEDS: MUPIROCIN OINT 2% 22 GM TUBE TP SCH ×2 (08:56→21:26)
--- NOTE | 2021-07-25 09:00 | NUR ---
RN NOTE- PT TO HAVE US GUIDED THORACENTESIS . INR 1.72. DR OLGUIN NOTIFIED. HE HAD ME NOTIFY DR IZQUIERDO. SHE ORDERED 2 UN FFP. LAB STATED THEY COULDN'T GET FFP IN TIME FOR NOON CUTOFF / RADIOLOGY. RADIOLOGY STATED THEY HAD TO HAVE PATIENT DOWN THERE BY NOON. DR IZQUIERDO ORDERED PT/INR FOR SUN. TRANSFUSE TWO UNITS FFP SUN NIGHT IF INR <1.5
--- NOTE | 2021-07-25 10:06 | NUR ---
08:00 SPOKE TO RNMELI. PT WAS NOT GIVEN MED TO LOWER INR. HE WILL TEXT ORDERING MD. 09:30 CALLED RN, HE STATED THAT MD ORDERED MEDS TO LOWER INR TO BE ADMINISTERED TOMORROW. RN ALSO STATED THAT MD IS AWARE AND WANTS THORACENTESIS TO BE DONE ON WEDNESDAY. 10:18 RN CALLED AND STATED THAT HE SPOKE TO MD. IZQUIERDO. MD ORDERED PLASMA TO BE GIVEN ON WEDNESDAY AND THORACENTESIS TO BE DONE ON WEDNESDAY. CONTACTED GYROSCOPIC ENGINEERING TECHNICIAN, DANI AT 08:45 TO SCHEDULE THE BIOPSY. PER [facility]. IS CLOSED. PATHOLOGIST AND THE TECHS WILL BE AVAILABLE ON Wednesday07/29/21. THE TIME WILL BE CONFIRMED Wednesday.
[2021-07-25 16:14] VITALS: BP 151/76
--- NOTE | 2021-07-25 18:27 | NUR ---
RN CLOSING NOTE- PT TO HAVE LABS DRAWN Wednesday. PT / INR. CONTINUES ON LOVENOX AT PRESENT PER DEION JIMÉNEZ. DR IZQUIERDO ORDERED 2 U FFP WEDNESDAY NIGHT IF INR > 1.5. PATIENT ALERT AND ORIENTED TO PERSON PLACE ONLY, CONFUSED. GLEASON CATHETER TO GRAVITY. NO C/O PAIN. NO DISCOMFORT NOTED. BED LOCKED, LOWEST POSITION, CALL LIGHT WITHIN REACH. MONITOR / ASSIST
--- NOTE | 2021-07-25 19:43 | NUR ---
MS RN OPENING NOTE PATIENT RECEIVED AWAKE IN BED. A/OX2. NO S/S OF DISTRESS, BREATHING SYMMETRICAL. LFA 18G, RFA 18G BOTH PATENT. SAFETY MEASURES IN PLACE: BED AT LOWEST POSITION, RAILS UP X2, CALL DASILVA WITHIN REACH. WILL CONTINUE TO MONITOR PATIENT.
[2021-07-25 20:00] VITALS: BP 128/55
[2021-07-26] MEDS: ENOXAPARIN SODIUM 60 MG/0.6 ML DISP.SYRIN SQ SCH ×2 (02:00→14:19)
--- NOTE | 2021-07-26 03:59 | NUR ---
MS RN NOTE PATIENT WANTED TO STOP THE IVF (D5 1/2). PATIENT EDUCATION AND ENCOURAGEMENT GIVEN TO PATIENT BUT PATIENT WAS ADAMANT ABOUT NOT RECEIVING ANY FURTHER IVF AT THIS TIME. WILL TRY AGAIN LATER BEFORE END OF SHIFT TO ENCOURAGE THE PATIENT TO RESUME IVF.
--- NOTE | 2021-07-26 06:54 | NUR ---
MS RN CLOSING NOTE PATIENT IS ASLEEP IN BED. A/OX4. NO S/S OF DISTRESS, BREATHING SYMMETRICAL. LFA & RAC 18G IV PATENT. SAFETY MEASURES IN PLACE: BED AT LOWEST POSITION, RAILS UP X2, CALL DASILVA WITHIN REACH. WILL ENDORSE TO NEXT SHIFT FOR RADHA.
--- NOTE | 2021-07-26 07:20 | NUR ---
RN NOTES PATIENT RESTING IN BED, EYES CLOSED, ABLE TO BE AWAKENED. A/O X2, ABLE TO MAKE NEEDS KNOWN. BREATHING EVEN AND UNLABORED, TOLERATING ROOM AIR, NO RESPIRATORY DISTRESS. IV LINE INTACT AND PATENT, IVF INFUSING WELL. GLEASON CATH IN PLACE, DRAINING YELLOW-COLORED URINE. SAFETY MEASURES IN PLACE. WILL CONTINUE TO MONITOR.
[2021-07-26 08:34] VITALS: BP 131/52
[2021-07-26] MEDS: PANTOPRAZOLE 40 MG TABLET.DR PO SCH (08:56)
[2021-07-26] MEDS: FOLIC ACID 1 MG TABLET PO SCH (08:56)
[2021-07-26] MEDS: BICALUTAMIDE 50 MG TABLET PO SCH (08:56)
[2021-07-26] MEDS: MUPIROCIN OINT 2% 22 GM TUBE TP SCH (09:08)
--- NOTE | 2021-07-26 10:34 | NUR ---
RN NOTES PURNIMA, PHARMACY BENEFITS COORDINATOR ONCO, IN THE UNIT TO SEE THE PATIENT.
--- NOTE | 2021-07-26 11:26 | NUR ---
RN NOTES PER COORDINATOR [employer], PATIENT REFUSED BLOOD DRAW FOR LABS TODAY.
--- NOTE | 2021-07-26 14:20 | NUR ---
RN NOTES LOVENOX ABLE TO BE GIVEN TO PATIENT SQ.
[2021-07-26 16:14] VITALS: BP 125/49
--- NOTE | 2021-07-26 19:01 | NUR ---
RN NOTES PATIENT RESTING IN BED, EYES CLOSED, ABLE TO BE AWAKENED. CONTINUES ON ROOM AIR W/ EVEN AND UNLABORED BREATHING, NOT IN ACUTE DISTRESS. IV LINES INTACT AND PATENT, SL. SAFETY MEASURES MAINTAINED. WILL ENDORSE TO STRATEGIC SOURCING SPECIALIST RN FOR RADHA.
[2021-07-26 20:00] VITALS: BP 128/52
--- NOTE | 2021-07-26 20:36 | NUR ---
RECEIVED PATIENT IN BED, ALERT/ORIENTED X2, ROOM AIR, NO COMPLAIN OF PAIN, HOSTILE, HARD OF HEARING, HEARING AIDS X2, LFA AND RAC PERIPHERAL LINE, TKO, GLEASON CATHETER DRAINING WITH CLEAR AND YELLOW URINE, BED ALARM, KEPT SAFE, CALL LIGHT WITHIN REACH.
[2021-07-26] MEDS ORDERED: MUPIROCIN OINT 2% 22 GM TUBE ONE (23:19)
[2021-07-27] MEDS: MUPIROCIN OINT 2% 22 GM TUBE TP SCH ×3 (00:17→21:07)
[2021-07-27] MEDS: ENOXAPARIN SODIUM 60 MG/0.6 ML DISP.SYRIN SQ SCH ×2 (01:02→14:04)
--- NOTE | 2021-07-27 06:00 | NUR ---
RN NOTES PATIENT ALERT/ORIENTED X2, STABLE ON ROOM AIR, UNCOOPERATIVE AT TIMES, GLEASON CATHETER DRAINING WELL, REFUSING AM BLOOD DRAW, FOR THORACENTESIS ON WEDNESDAY, PER ORDER, HOLD LOVENOX IF INR < 1.5. KEPT SAFE, FALL PRECAUTION, ENCOURAGE PATIENT TO COOPERATE WITH CARE.
[2021-07-27] MEDS: PANTOPRAZOLE 40 MG TABLET.DR PO SCH (07:30)
[2021-07-27 08:00] VITALS: BP 144/62
--- NOTE | 2021-07-27 08:00 | NUR ---
RN NOTES PATIENT REFUSED BLOOD DRAW IN AM PER SANDING LINE OPERATOR RN REPORT.
[2021-07-27] MEDS: BICALUTAMIDE 50 MG TABLET PO SCH (08:12)
[2021-07-27] MEDS: FOLIC ACID 1 MG TABLET PO SCH (08:12)
--- NOTE | 2021-07-27 09:12 | NUR ---
RN NOTES PATIENT REFUSED AM MEDS TODAY EXCEPT FOR BACTROBAN SANCHEZ; EXPLAINED IMPORTANCE OF MEDICATION COMPLIANCE BUT PATIENT STILL INSISTED ON REFUSING TO TAKE THEM.
--- NOTE | 2021-07-27 10:37 | NUR ---
RN NOTES PATIENT SEEN BY DEION FELTON ONCO; PER HYPERCIL CORE TRANSFORMER ASSEMBLER, HOLD AM DOSE OF LOVENOX ON 07/28/2021 FOR SCHEDULED PROCEDURE.
[2021-07-27] MEDS: ENSURE ENLIVE 237 ML LIQUID (VANILLA) PO SCH ×2 (13:30→18:00)
[2021-07-27 16:00] VITALS: BP_SYST 128; BP_SYST 129; BP_DIAS 62; BP_DIAS 67
--- NOTE | 2021-07-27 17:45 | NUR ---
RN NOTES FAMILY PREVIOUSLY AT BEDSIDE TO VISIT PATIENT (DTR). PER DTR, HER BROTHER IS POC AND IS AWARE OF PLAN OF CARE.
--- NOTE | 2021-07-27 18:37 | NUR ---
RN NOTES PHOTOENGRAVING SKETCH MAKER AWARE THAT PATIENT REFUSED LABS TODAY. OK IF PATIENT REFUSED TODAY LONG LABS TOMORROW ARE DRAWN BEFORE PROCEDURE, PER PHOTOENGRAVING SKETCH MAKER.
--- NOTE | 2021-07-27 18:50 | NUR ---
RN NOTES PATIENT RESTING IN BED, NOT IN ACUTE DISTRESS. ASSISTED W/ BED MOBILITY TOLERATED. OFFERED SNACKS TO PATIENT BUT REFUSED, REQUESTS AND ABLE TO DRINK [place] SODA FROM DIETARY. GLEASON CATH IN PLACE, DRAINING YELLOW-COLORED URINE. SAFETY MEASURES MAINTAINED. WILL ENDORSE TO SALES REPRESENTATIVE PRINTING RN FOR RADHA.
--- NOTE | 2021-07-27 19:30 | NUR ---
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 PT STABLE ON RA, NO S/S OF DISTRESS OR SOB NOTED, BREATHING EVEN AND UNLABORED. IV ACCES ON LEFT AND RIGHT FOREARM INTACT AND FLUSHING WELL. GLEASON CATHETER IN PLACE, DRAINING DARK YELLOW URINE. PER DAY SHIFT NURSE HOLD AM DOSE OF LOVENOX FOR THORACENTESIS WITH BIOPSY TOMORROW. SAFETY MEASURES IN PLACE: CALL LIGHT WITHIN REACH, SIDE RAILS UP X 3, BED LOCKED IN LOW POSITION, BED ALARM ON. WILL CONTINUE TO MONITOR PATIENT Addendum: 07/28/21 at 0226 by SERA BERGER RN RIGHT FOREARM IV ACCESS RED, SWOLLEN AND PAINFUL FOR PATIENT. REMOVED IV INTACT, MINIMAL BLEEDING, COVERED WITH GAUZE AND PLACE ICE PACK
[2021-07-27 20:00] VITALS: BP 128/62
[2021-07-28] MEDS: ENOXAPARIN SODIUM 60 MG/0.6 ML DISP.SYRIN SQ SCH ×2 (01:22→14:00)
--- NOTE | 2021-07-28 02:00 | NUR ---
MS RN NOTE HELD LOVENOX PER MD ORDER FOR THORACENTESIS WITH BIOPSY TODAY
[2021-07-28 04:00] VITALS: BP 120/40
--- NOTE | 2021-07-28 07:36 | NUR ---
MS RN OPENING NOTE Patient in bed, asleep. A/O x 2. On room air, breathing evenly and unlabored. No SOB or s/s of distress noted. IV access on LFA #18G, intact and patent. Solano catheter in place. Safety measures in place: bed in low, locked position; siderails up x 2; call light within reach. Will continue to monitor.
[2021-07-28 08:00] VITALS: BP 119/50
[2021-07-28] MEDS: PANTOPRAZOLE 40 MG TABLET.DR PO SCH (08:19)
[2021-07-28] MEDS: FOLIC ACID 1 MG TABLET PO SCH (08:21)
[2021-07-28] MEDS: BICALUTAMIDE 50 MG TABLET PO SCH (08:21)
[2021-07-28 12:05] LABS: BASOPHILS % (AUTO) 0.7 % (0.0-2.0); EOSINOPHILS % (AUTO) 1.1 % (0.0-6.0); HEMATOCRIT 28 % (39-51); HEMOGLOBIN 8.9 g/dL (13.5-17.5); LYMPHOCYTES # (AUTO) 0.7 K/uL (0.8-4.8); LYMPHOCYTES % (AUTO) 12.1 % (20.0-44.0); MEAN CORPUSCULAR HGB CONC 32 g/dl (31.0-36.0); MEAN CORPUSCULAR VOLUME 92 fL (80-96); MONOCYTES # (AUTO) 0.3 K/uL (0.1-1.30); MONOCYTES % (AUTO) 6.2 % (2.0-12.0); NEUTROPHILS # (AUTO) 4.3 K/uL (1.8-8.9); NEUTROPHILS % (AUTO) 79.9 % (43.0-81.0); PLATELET COUNT (AUTO) 214 K/uL (150-450); RED BLOOD CELL COUNT(AUTO) 3.02 MIL/uL (4.5-6.0); WHITE BLOOD COUNT (AUTO) 5.4 K/uL (4.3-11.0)
[2021-07-28 12:25] LABS: CALCIUM, SERUM 7.6 mg/dL (8.5-10.1); CREATININE 0.8 mg/dL (0.6-1.3)
--- NOTE | 2021-07-28 13:10 | NUR ---
RN NOTE Received call from [place] from lab, critical value of Potassium 2.8. Dr. Gonsalves informed and ordered potassium replacement for patient.
[2021-07-28 13:11] LABS: POTASSIUM 2.8 mmol/L (3.5-5.1)
[2021-07-28] MEDS ORDERED: POTASSIUM CHLORIDE 20 MEQ TAB.PRT.SR PO ONE (13:30)
[2021-07-28] MEDS: ENSURE ENLIVE 237 ML LIQUID (VANILLA) PO SCH ×2 (13:43→17:44)
--- NOTE | 2021-07-28 14:00 | NUR ---
RN NOTE Held Randix. Patient INR 1.24, procedure to be re-attempted tomorrow morning. MD aware.
[2021-07-28] MEDS ORDERED: BICALUTAMIDE 50 MG TABLET PO SCH (14:30)
--- NOTE | 2021-07-28 14:50 | NUR ---
RN NOTE Radiologist attempted thoracentesis but was not completed, patient was moving too much. Will try procedure again tomorrow, Dr. Champion aware.
[2021-07-28 16:00] VITALS: BP 115/50
--- NOTE | 2021-07-28 19:21 | NUR ---
MS RN CLOSING NOTE Patient in bed, asleep. A/O x 2, [place] with hearing aids on both ears. Stable on room air, no SOB or s/s of distress noted. IV access on LFA #18G, intact and patent. Solano catheter in place draining to a yellow colored urine with an output of 700cc. All needs attended to. Due meds given. Safety measures maintained: bed in low, locked position; siderails up x 2; call light within reach. Will endorse to night warehouse selector nurse for RADHA.
--- NOTE | 2021-07-28 19:30 | NUR ---
MS RN OPENING NOTE RECEIVED PT AWAKE IN BED. A/O X2. HARD OF HEARING WITH HEARING AIDS IN BILATERAL EARS. PT STABLE ON ROOM AIR. NO SOB OR S/S OF RESPIRATORY DISTRESS NOTED. IV ACCESS LFA 18 GAUGE SALINE LOCKED, INTACT AND PATENT. GLEASON CATHETER INTACT. SAFETY PRECAUTIONS IN PLACE. BED IN LOWEST LOCKED POSITION, HOB ELEVATED, SIDE RAILS UP X2, AND CALL LIGHT AND TABLE WITHIN REACH. WILL CONTINUE WITH PLAN OF CARE.
[2021-07-28 20:00] VITALS: BP 128/51
[2021-07-29] MEDS: ENOXAPARIN SODIUM 60 MG/0.6 ML DISP.SYRIN SQ SCH (02:00)
--- NOTE | 2021-07-29 06:59 | NUR ---
MS RN CLOSING NOTE PT AWAKE IN BED. A/O X2. HARD OF HEARING WITH HEARING AIDS IN BILATERAL EARS. PT STABLE ON ROOM AIR. NO SOB OR S/S OF RESPIRATORY DISTRESS NOTED. IV ACCESS LFA 18 GAUGE SALINE LOCKED, INTACT AND PATENT. GLEASON CATHETER INTACT. ALL NEEDS MET AT THIS TIME. SAFETY PRECAUTIONS IN PLACE AT ALL TIMES. BED IN LOWEST LOCKED POSITION, HOB ELEVATED, SIDE RAILS UP X2, AND CALL LIGHT AND TABLE WITHIN REACH. WILL ENDORSE TO ONCOMING NURSE TO [facility].
--- NOTE | 2021-07-29 07:30 | NUR ---
MS RN OPENING NOTES RECEIVED PATIENT AWAKE IN BED. A/O X2. HARD OF HEARING WITH HEARING AIDS IN BILATERAL EARS. PATIENT IS STABLE ON ROOM AIR. NO SOB OR S/S OF RESPIRATORY DISTRESS NOTED. IV ACCESS ON THE LFA 18 GAUGE SALINE LOCKED, INTACT AND PATENT. GLEASON CATHETER INTACT. SAFETY PRECAUTIONS IN PLACE. BED IN LOWEST LOCKED POSITION, HOB ELEVATED, SIDE RAILS UP X2, AND CALL LIGHT AND TABLE WITHIN REACH. WILL CONTINUE TO MONITOR.
[2021-07-29] MEDS: PANTOPRAZOLE 40 MG TABLET.DR PO SCH (07:51)
[2021-07-29 08:00] VITALS: BP 127/51
[2021-07-29] MEDS: FOLIC ACID 1 MG TABLET PO SCH (08:42)
[2021-07-29] MEDS: BICALUTAMIDE 50 MG TABLET PO SCH (08:42)
--- NOTE | 2021-07-29 10:56 | NUR ---
RN NOTES RECEIVED ONE TIME ORDER OF ATIVAN 1MG IV AT [address] OLGUIN.
[2021-07-29] MEDS ORDERED: LORAZEPAM INJ 2 MG/ML VIAL IV ONE (12:00)
[2021-07-29] MEDS: ENSURE ENLIVE 237 ML LIQUID (VANILLA) PO SCH ×2 (12:50→18:03)
[2021-07-29] MEDS ORDERED: DIVALPROEX SODIUM 500 MG TABLET.DR PO SCH (13:00)
[2021-07-29 15:33] LABS: BASOPHILS # (AUTO) 0.1 K/uL (0.0-0.2); BASOPHILS % (AUTO) 1.2 % (0.0-2.0); EOSINOPHILS % (AUTO) 2.4 % (0.0-6.0); HEMATOCRIT 27 % (39-51); HEMOGLOBIN 8.8 g/dL (13.5-17.5); LYMPHOCYTES # (AUTO) 0.8 K/uL (0.8-4.8); LYMPHOCYTES % (AUTO) 17.5 % (20.0-44.0); MEAN CORPUSCULAR HGB CONC 33 g/dl (31.0-36.0); MEAN CORPUSCULAR VOLUME 92 fL (80-96); MONOCYTES # (AUTO) 0.4 K/uL (0.1-1.30); MONOCYTES % (AUTO) 8.3 % (2.0-12.0); NEUTROPHILS # (AUTO) 3.2 K/uL (1.8-8.9); NEUTROPHILS % (AUTO) 70.6 % (43.0-81.0); PLATELET COUNT (AUTO) 203 K/uL (150-450); RED BLOOD CELL COUNT(AUTO) 2.93 MIL/uL (4.5-6.0); WHITE BLOOD COUNT (AUTO) 4.5 K/uL (4.3-11.0)
[2021-07-29 15:55] LABS: ALBUMIN 1.7 g/dL (3.4-5.0); BILIRUBIN,TOTAL 0.3 mg/dL (0.2-1.0); CALCIUM, SERUM 7.8 mg/dL (8.5-10.1); CREATININE 0.8 mg/dL (0.6-1.3); POTASSIUM 3.6 mmol/L (3.5-5.1); TOTAL PROTEIN, SERUM 5.8 g/dL (6.4-8.2)
[2021-07-29 16:00] VITALS: BP 124/62
[2021-07-29] MEDS: SENNOSIDES 8.6 MG TABLET PO SCH (17:25)
[2021-07-29] MEDS: DOCUSATE SODIUM 100 MG CAPSULE PO SCH (17:25)
--- NOTE | 2021-07-29 18:41 | NUR ---
RN NOTES CALLED XANDER DUPREE JR THE SON OF THE PATIENT XANDER DUPREE AT 1755PM AND GOT PERMISSION FOR THE SISTER JAM ELLIS TO BE THE DESIGNATED PERSON WHEN NEEDED TO SIGN THE CONSENT FORMS. THE SON WILL STILL REMAIN THE PRIMARY ONE. ASKED THE PATIENT , HE ALSO AGREED THE DAUGHTER , JAM ELLIS TO SIGN THE CONSENT FORMS.
--- NOTE | 2021-07-29 18:55 | NUR ---
MS RN CLOSING NOTES PATIENT AWAKE IN BED. A/O X2. HARD OF HEARING WITH HEARING AIDS IN BILATERAL EARS. PATIENT IS STABLE ON ROOM AIR. NO SOB OR S/S OF RESPIRATORY DISTRESS NOTED. IV ACCESS ON THE RIGHT HAND #22 GAUGE SALINE LOCKED, INTACT AND PATENT. GLEASON CATHETER INTACT. DAUGHTER JAM ELLIS VISITED THE PATIENT.SAFETY PRECAUTIONS IN PLACE. BED IN LOWEST LOCKED POSITION, HOB ELEVATED, SIDE RAILS UP X2, AND CALL LIGHT AND TABLE WITHIN REACH. WILL ENDORSE INCOMING SHIFT FOR RAD[facility].
--- NOTE | 2021-07-29 19:33 | NUR ---
MS RN OPENING NOTE RECEIVED PT AWAKE IN BED. A/O X2. HARD OF HEARING WITH HEARING AIDS IN BILATERAL EARS. PT STABLE ON ROOM AIR. NO SOB OR S/S OF RESPIRATORY DISTRESS NOTED. IV ACCESS R HAND 22 GAUGE SALINE LOCKED, INTACT AND PATENT. GLEASON CATHETER INTACT. SAFETY PRECAUTIONS IN PLACE. BED IN LOWEST LOCKED POSITION, HOB ELEVATED, SIDE RAILS UP X2, AND CALL LIGHT AND TABLE WITHIN REACH. WILL CONTINUE WITH PLAN OF CARE.
[2021-07-29 20:00] VITALS: BP 132/59
[2021-07-29] MEDS: TAMSULOSIN 0.4 MG CAP.SR.24H PO SCH (21:03)
[2021-07-29] MEDS: ATORVASTATIN 40 MG TABLET PO SCH (21:03)
[2021-07-29] MEDS: DIVALPROEX SODIUM 125 MG CAP.SPRINK PO SCH (22:06)
[2021-07-30] MEDS: DIVALPROEX SODIUM 125 MG CAP.SPRINK PO SCH ×3 (04:08→22:00)
--- NOTE | 2021-07-30 06:51 | NUR ---
MS RN CLOSING NOTE PT AWAKE IN BED. A/O X2. HARD OF HEARING WITH HEARING AIDS IN BILATERAL EARS. PT STABLE ON ROOM AIR. NO SOB OR S/S OF RESPIRATORY DISTRESS NOTED. IV ACCESS R HAND 22 GAUGE SALINE LOCKED, INTACT AND PATENT. GLEASON CATHETER INTACT. ALL NEEDS MET AT THIS TIME. SAFETY PRECAUTIONS IN PLACE AT ALL TIMES. BED IN LOWEST LOCKED POSITION, HOB ELEVATED, SIDE RAILS UP X2, AND CALL LIGHT AND TABLE WITHIN REACH. WILL ENDORSE TO ONCOMING NURSE TO [facility].
--- NOTE | 2021-07-30 07:20 | NUR ---
RN NOTES PATIENT RESTING IN BED, EYES CLOSED, ABLE TO BE AWAKENED. BREATHING EVEN AND UNLABORED, NOT IN ACUTE DISTRESS, ON ROOM AIR. IV LINE INTACT AND PATENT. GLEASON CATH IN PLACE, DRAINING YELLOW-COLORED URINE. SAFETY MEASURES IN PLACE. WILL CONTINUE TO MONITOR.
[2021-07-30 08:00] VITALS: BP 127/51
--- NOTE | 2021-07-30 08:15 | NUR ---
RN NOTES PATIENT SEEN BY DR. OLGUIN; MADE AWARE OF PLAN OF CARE.
[2021-07-30] MEDS: DOCUSATE SODIUM 100 MG CAPSULE PO SCH ×2 (08:21→16:05)
[2021-07-30] MEDS: ASCORBIC ACID 500 MG TABLET PO SCH (08:21)
[2021-07-30] MEDS: FERROUS SULFATE (325 MG) 325 MG/TAB TABLET PO SCH (08:21)
[2021-07-30] MEDS: SENNOSIDES 8.6 MG TABLET PO SCH ×2 (08:21→16:05)
[2021-07-30] MEDS: BICALUTAMIDE 50 MG TABLET PO SCH (08:21)
[2021-07-30] MEDS: FOLIC ACID 1 MG TABLET PO SCH (08:21)
[2021-07-30] MEDS: PANTOPRAZOLE 40 MG TABLET.DR PO SCH (08:21)
[2021-07-30] MEDS: MULTIVIT W/MINERALS 1 TAB TABLET PO SCH (08:21)
[2021-07-30] MEDS ORDERED: LANSOPRAZOLE 15 MG PO SCH (09:00)
--- NOTE | 2021-07-30 10:23 | NUR ---
RN NOTES PATIENT SEEN BY DEION TODD ONCO; PER TAPE TRANSFERRER, OK TO GIVE LOVENOX DOSE TODAY BUT HOLD LOVENOX IN AM OF PROCEDURE.
[2021-07-30] MEDS: ENOXAPARIN SODIUM 60 MG/0.6 ML DISP.SYRIN SQ SCH ×2 (11:04→22:02)
--- NOTE | 2021-07-30 11:14 | NUR ---
RN NOTES LOVENOX SQ GIVEN TODAY. DTR JAM GUNN AT BEDSIDE TO VISIT THE PATIENT.
[2021-07-30] MEDS: ENSURE ENLIVE 237 ML LIQUID (VANILLA) PO SCH ×2 (12:01→17:04)
--- NOTE | 2021-07-30 15:43 | NUR ---
RN NOTES PATIENT SEEN BY DEION MONTERO; NO NEW ORDER AT THIS TIME.
[2021-07-30 16:00] VITALS: BP 128/45
[2021-07-30] MEDS ORDERED: APIXABAN 5 MG TABLET PO SCH (17:00)
--- NOTE | 2021-07-30 19:28 | NUR ---
RN NOTES DTR JAM GUNN AT BEDSIDE W/ PATIENT. BONE MARROW BIOPSY KIT AT MED ROOM IN A BASIN W/ PATIENT LABEL. PATIENT NOT IN ACUTE DISTRESS. SAFETY MEASURES MAINTAINED. ENDORSED TO CARDIOPULMONARY PHYSICAL THERAPIST RN FOR RADHA. PATIENT'S DTR REQUESTS MEDICAL INFORMATION ON PATIENT AND WAS ADVISED TO SEE CHARGE NURSE IN AM TO FILL OUT RELEASE OF MEDICAL INFORMATION FORM. DTR VERBALIZED UNDERSTANDING.
[2021-07-30 20:00] VITALS: BP_SYST 120; BP_SYST 126; BP_DIAS 50
[2021-07-30] MEDS: TAMSULOSIN 0.4 MG CAP.SR.24H PO SCH (22:00)
[2021-07-30] MEDS: ATORVASTATIN 40 MG TABLET PO SCH (22:00)
[2021-07-31] MEDS: DIVALPROEX SODIUM 125 MG CAP.SPRINK PO SCH ×3 (05:51→21:56)
[2021-07-31] MEDS ORDERED: LIDOCAINE 1% INJ 50 ML MDV IJ ONE ×2 (07:00→17:30)
--- NOTE | 2021-07-31 07:45 | NUR ---
MS RN OPENING NOTES RECEIVED PT IN BED ASLEEP, EASY TO AROUSE. ALERT AND ORIENTED X 2, HARD OF HEARING BILATERAL EARS. NO S/SX OF DISTRESS NOTED. NO SOB. BREATHING EVEN AND UNLABORED, TOLERATING WELL ON ROOM AIR. GLEASON CATHETER IN PLACE AND DRAINING YELLOW CLEAR URINE. IV ACCESS ON RHAND 22 INTACT AND PATENT SAFETY MEASURE IN PLACE WITH BED LOCKED AND IN LOWEST POSITION, SR UP X2, CALL LIGHT PLACED WITHIN EASY REACH. WILL CONTINUE TO MONITOR PT FOR CHANGES IN CONDITION.
[2021-07-31 08:00] VITALS: BP 123/45
[2021-07-31] MEDS: ENOXAPARIN SODIUM 60 MG/0.6 ML DISP.SYRIN SQ SCH ×2 (09:00→21:00)
[2021-07-31] MEDS: SENNOSIDES 8.6 MG TABLET PO SCH ×2 (09:19→17:33)
[2021-07-31] MEDS: FERROUS SULFATE (325 MG) 325 MG/TAB TABLET PO SCH (09:19)
[2021-07-31] MEDS: BICALUTAMIDE 50 MG TABLET PO SCH (09:19)
[2021-07-31] MEDS: DOCUSATE SODIUM 100 MG CAPSULE PO SCH ×2 (09:19→17:34)
[2021-07-31] MEDS: ASCORBIC ACID 500 MG TABLET PO SCH (09:19)
[2021-07-31] MEDS: FOLIC ACID 1 MG TABLET PO SCH (09:19)
[2021-07-31] MEDS: MULTIVIT W/MINERALS 1 TAB TABLET PO SCH (09:19)
[2021-07-31] MEDS: PANTOPRAZOLE 40 MG TABLET.DR PO SCH (09:19)
[2021-07-31 11:13] LABS: BASOPHILS % (AUTO) 1.1 % (0.0-2.0); EOSINOPHILS % (AUTO) 2.7 % (0.0-6.0); HEMATOCRIT 27 % (39-51); HEMOGLOBIN 8.9 g/dL (13.5-17.5); LYMPHOCYTES # (AUTO) 0.9 K/uL (0.8-4.8); LYMPHOCYTES % (AUTO) 21.8 % (20.0-44.0); MEAN CORPUSCULAR HGB CONC 33 g/dl (31.0-36.0); MEAN CORPUSCULAR VOLUME 91 fL (80-96); MONOCYTES # (AUTO) 0.3 K/uL (0.1-1.30); NEUTROPHILS # (AUTO) 2.7 K/uL (1.8-8.9); NEUTROPHILS % (AUTO) 67.4 % (43.0-81.0); PLATELET COUNT (AUTO) 215 K/uL (150-450)
[2021-07-31] MEDS ORDERED: APIX5TAB PO (11:39)
[2021-07-31] MEDS ORDERED: BICA50TA8 PO (11:39)
[2021-07-31] MEDS ORDERED: Folic Acid PO (11:39)
[2021-07-31] MEDS ORDERED: PANT40TA49 PO (11:39)
[2021-07-31 11:43] LABS: ALBUMIN 1.6 g/dL (3.4-5.0); BILIRUBIN,TOTAL 0.4 mg/dL (0.2-1.0); CALCIUM, SERUM 7.3 mg/dL (8.5-10.1); CREATININE 0.8 mg/dL (0.6-1.3); POTASSIUM 3.1 mmol/L (3.5-5.1); TOTAL PROTEIN, SERUM 5.7 g/dL (6.4-8.2)
[2021-07-31] MEDS ORDERED: DOCU-141 PO (11:49)
[2021-07-31] MEDS ORDERED: ACET-907 PO (11:49)
[2021-07-31] MEDS ORDERED: LORAZEPAM 1 MG TABLET PO ONE ×2 (12:00→17:00)
[2021-07-31] MEDS ORDERED: MORPHINE SULFATE INJ 2 MG/ML DISP.SYRIN IV ONE ×2 (12:00→17:00)
[2021-07-31] MEDS: ENSURE ENLIVE 237 ML LIQUID (VANILLA) PO SCH ×2 (12:40→17:53)
[2021-07-31 16:00] VITALS: BP 120/52
[2021-07-31] MEDS: POTASSIUM CL. PREMIX PERIPHER. 50 ML IV SCH ×2 (17:52→18:03)
--- NOTE | 2021-07-31 19:29 | NUR ---
MS RN CLOSING NOTE PT ASLEEP IN BED. A/O X2. HARD OF HEARING WITH HEARING AIDS IN BILATERAL EARS. PT STABLE ON ROOM AIR. NO SOB OR S/S OF RESPIRATORY DISTRESS NOTED. IV ACCESS R HAND 22. GLEASON CATHETER INTACT. ALL NEEDS MET AT THIS TIME. SAFETY PRECAUTIONS IN PLACE AT ALL TIMES. BED IN LOWEST LOCKED POSITION, HOB ELEVATED, SIDE RAILS UP X2, AND CALL LIGHT AND TABLE WITHIN REACH. WILL ENDORSE TO ONCOMING NURSE TO [facility].
--- NOTE | 2021-07-31 19:30 | NUR ---
MS/RN OPENING NOTE RECEIVED PATIENT SLEEPING IN BED. ALERT AND ORIENTED X 2. ABLE TO MAKE NEEDS KNOWN. DENIES PAIN AT THIS TIME. CONTINUES ON ROOM AIR WITH NO S/SX OF RESPIRATORY DISTRESS NOTED. IV ACCESS TO RIGHT HAND #22G INTACT, PATENT AND SALINE LOCKED. CONTINUES ON SOFT DIET WITH NO S/SX OF ASPIRATION NOTED. GLEASON CATHETER IN PLACE DRAINING CLEAR, YELLOW URINE TO GRAVITY. CALL LIGHT WITHIN REACH. ASPIRATION, FALL AND SAFETY PRECAUTIONS MAINTAINED. WILL CONTINUE TO MONITOR.
[2021-07-31 20:35] VITALS: BP 130/82
[2021-07-31 21:16] LABS: BASOPHILS % (AUTO) 0.4 % (0.0-2.0); EOSINOPHILS % (AUTO) 2.2 % (0.0-6.0); HEMATOCRIT 26 % (39-51); HEMOGLOBIN 8.5 g/dL (13.5-17.5); LYMPHOCYTES % (AUTO) 21.1 % (20.0-44.0); MEAN CORPUSCULAR HGB CONC 33 g/dl (31.0-36.0); MEAN CORPUSCULAR VOLUME 92 fL (80-96); MONOCYTES # (AUTO) 0.4 K/uL (0.1-1.30); MONOCYTES % (AUTO) 7.9 % (2.0-12.0); NEUTROPHILS # (AUTO) 3.4 K/uL (1.8-8.9); NEUTROPHILS % (AUTO) 68.4 % (43.0-81.0); PLATELET COUNT (AUTO) 217 K/uL (150-450); RED BLOOD CELL COUNT(AUTO) 2.86 MIL/uL (4.5-6.0); WHITE BLOOD COUNT (AUTO) 4.9 K/uL (4.3-11.0)
[2021-07-31] MEDS: TAMSULOSIN 0.4 MG CAP.SR.24H PO SCH (21:56)
[2021-07-31] MEDS: ATORVASTATIN 40 MG TABLET PO SCH (21:57)
--- NOTE | 2021-07-31 22:02 | NUR ---
MS/RN NOTE HOLDING LOVENOX S/P BONE MARROW BIOPSY.
[2021-08-01] MEDS: DIVALPROEX SODIUM 125 MG CAP.SPRINK PO SCH ×3 (05:48→21:35)
--- NOTE | 2021-08-01 05:53 | NUR ---
MS/RN NOTE PATIENT REFUSING TO TAKE DIVALPROEX SODIUM IN APPLESAUCE. INSISTING IT HAS TO BE PILL FORM. HAD ALREADY OPENED AND MIXED WITH APPLESAUCE. WASTED FIRST DOSE. TOOK OUT SECOND DOSE FROM [employer].
--- NOTE | 2021-08-01 06:20 | NUR ---
MS/RN CLOSING NOTE PATIENT CURRENTLY RESTING IN BED. AWAKE, ALERT AND ORIENTED X 2-3. ABLE TO MAKE NEEDS KNOWN. DENIES PAIN AT THIS TIME. CONTINUES ON ROOM AIR WITH NO S/SX OF RESPIRATORY DISTRESS NOTED. IV ACCESS TO RIGHT HAND #22G INTACT, PATENT AND SALINE LOCKED. CONTINUES ON SOFT DIET WITH NO S/SX OF ASPIRATION NOTED. GLEASON CATHETER IN PLACE DRAINING CLEAR, YELLOW URINE TO GRAVITY. CALL LIGHT WITHIN REACH. ASPIRATION, FALL AND SAFETY PRECAUTIONS MAINTAINED. WILL ENDORSE PLAN OF CARE TO ONCOMING SHIFT.
--- NOTE | 2021-08-01 07:25 | NUR ---
MS RN OPENING NOTE RECEIVED Pt RESTING IN BED. ALERT AND ORIENTED X 2. DENIES ANY PAIN AT THIS TIME, NO SIGNS OF DISTRESS NOTICED. Pt IS ON ROOM AIR AND TOLERATING WELL WITH NO SIGNS OF RESPIRATORY DISTRESS. IV ACCESS ON RIGHT HAND #22g INTACT, PATENT AND SALINE LOCKED. GLEASON CATHETER IN PLACE DRAINING CLEAR, YELLOW URINE TO GRAVITY. SAFETY PRECAUTIONS IN PLACE; BED IS LOCKED AND IN LOWEST POSITION, CALL LIGHT AND BEDSIDE TABLE ARE WITHIN REACH. WILL CONTINUE TO MONITOR THROUGHOUT THE SHIFT.
[2021-08-01] MEDS: PANTOPRAZOLE 40 MG TABLET.DR PO SCH (07:52)
[2021-08-01 08:00] VITALS: BP 114/53
[2021-08-01] MEDS: BICALUTAMIDE 50 MG TABLET PO SCH (08:13)
[2021-08-01] MEDS: SENNOSIDES 8.6 MG TABLET PO SCH ×2 (08:13→16:33)
[2021-08-01] MEDS: FOLIC ACID 1 MG TABLET PO SCH (08:13)
[2021-08-01] MEDS: ASCORBIC ACID 500 MG TABLET PO SCH (08:13)
[2021-08-01] MEDS: FERROUS SULFATE (325 MG) 325 MG/TAB TABLET PO SCH (08:13)
[2021-08-01] MEDS: MULTIVIT W/MINERALS 1 TAB TABLET PO SCH (08:13)
[2021-08-01] MEDS: DOCUSATE SODIUM 100 MG CAPSULE PO SCH ×2 (08:13→16:34)
[2021-08-01] MEDS: ENOXAPARIN SODIUM 60 MG/0.6 ML DISP.SYRIN SQ SCH ×2 (08:15→21:00)
[2021-08-01] MEDS: ENSURE ENLIVE 237 ML LIQUID (VANILLA) PO SCH ×2 (12:53→17:35)
[2021-08-01 16:00] VITALS: BP 122/47
--- NOTE | 2021-08-01 19:17 | NUR ---
MS RN CLOSING NOTE PATIENT CURRENTLY RESTING IN BED. AWAKE, ALERT AND ORIENTED X 2-3. ABLE TO MAKE NEEDS KNOWN. DENIES PAIN AT THIS TIME. CONTINUES ON ROOM AIR WITH NO S/SX OF RESPIRATORY DISTRESS NOTED. IV ACCESS TO RIGHT HAND INTACT, PATENT AND SALINE LOCKED. CONTINUES ON SOFT DIET WITH NO S/SX OF ASPIRATION NOTED. GLEASON CATHETER IN PLACE DRAINING CLEAR, YELLOW URINE TO GRAVITY. CALL LIGHT WITHIN REACH. ASPIRATION, FALL AND SAFETY PRECAUTIONS MAINTAINED. WILL ENDORSE PLAN OF CARE TO ONCOMING SHIFT.
--- NOTE | 2021-08-01 19:30 | NUR ---
RN opening notes Received Pt from morning nurse. Pt is laying in bed comfortably watching TV. Pt is alert and orientedX3 and agitated easily. Respiration is normal in room air. No SOB. No S/S of distress noted. IV site at R hand # 22 is clean, intact and flushes easily, SL. Safety precautions is maintained. Bed at low position, brakes locked, side rails upX3, hob elevated, and call light is within reach. Will continue to monitor. Addendum: 08/02/21 at 0248 by LESA SMITH RN patterson cath is intact and draining yellow urine.
[2021-08-01 20:00] VITALS: BP_SYST 132; BP_SYST 133; BP_DIAS 54
--- NOTE | 2021-08-01 20:05 | NUR ---
RN notes Phelotomist at the bed side. Pt keep refusing am labs since in the morning. Explained risks and benefits. Pt keep refusing. Pt stated " No needle!!" Will continue to monitor.
--- NOTE | 2021-08-01 21:30 | NUR ---
RN notes Pt refused lovenox. Pt stated "No needle!! NO injection!!" Explained risks and benefits. Pt keep refusing. Will continue to monitor.
[2021-08-01] MEDS: TAMSULOSIN 0.4 MG CAP.SR.24H PO SCH (21:36)
[2021-08-01] MEDS: ATORVASTATIN 40 MG TABLET PO SCH (21:36)
[2021-08-02] MEDS: DIVALPROEX SODIUM 125 MG CAP.SPRINK PO SCH ×3 (05:21→21:11)
--- NOTE | 2021-08-02 05:46 | NUR ---
RN notes Pt keep refusing am labs. Explained risks and benefits. Pt keep refusing. Will continue to monitor.
--- NOTE | 2021-08-02 06:30 | NUR ---
RN closing notes Pt is resting in bed comfortably. Pt is alert and orientedX3. Respiration is normal in room air. No SOB. No S/S of distress noted. IV site at R hand # 22 is clean, intact and flushes easily, SL. Routine meds were given as ordered. Kept Pt clean, dry and comfortable. Safety precautions is maintained. Bed at low position, brakes locked, side rails upX3, hob elevated, and call light is within reach. Will endorse to am nurse for RADHA. Addendum: 08/02/21 at 0722 by LESA SMITH RN patterson is intact and draining yellow urine 550 ml.
--- NOTE | 2021-08-02 07:16 | NUR ---
MS RN OPENING NOTE RECEIVED Pt RESTING IN BED. ALERT AND ORIENTED X 2-3. DENIES ANY PAIN AT THIS TIME, NO SIGNS OF DISTRESS NOTICED. Pt IS ON ROOM AIR AND TOLERATING WELL WITH NO SIGNS OF RESPIRATORY DISTRESS. IV ACCESS ON RIGHT HAND INTACT, PATENT AND SALINE LOCKED. GLEASON CATHETER IN PLACE DRAINING CLEAR, YELLOW URINE TO GRAVITY. SAFETY PRECAUTIONS IN PLACE; BED IS LOCKED AND IN LOWEST POSITION, CALL LIGHT AND BEDSIDE TABLE ARE WITHIN REACH. WILL CONTINUE TO MONITOR THROUGHOUT THE SHIFT.
[2021-08-02 08:00] VITALS: BP 109/50
[2021-08-02] MEDS: FOLIC ACID 1 MG TABLET PO SCH (08:24)
[2021-08-02] MEDS: MULTIVIT W/MINERALS 1 TAB TABLET PO SCH (08:24)
[2021-08-02] MEDS: ASCORBIC ACID 500 MG TABLET PO SCH (08:24)
[2021-08-02] MEDS: SENNOSIDES 8.6 MG TABLET PO SCH ×2 (08:25→16:41)
[2021-08-02] MEDS: FERROUS SULFATE (325 MG) 325 MG/TAB TABLET PO SCH (08:25)
[2021-08-02] MEDS: BICALUTAMIDE 50 MG TABLET PO SCH (08:25)
[2021-08-02] MEDS: PANTOPRAZOLE 40 MG TABLET.DR PO SCH (08:25)
[2021-08-02] MEDS: DOCUSATE SODIUM 100 MG CAPSULE PO SCH ×2 (08:30→16:41)
[2021-08-02] MEDS: ENOXAPARIN SODIUM 60 MG/0.6 ML DISP.SYRIN SQ SCH (08:41)
--- NOTE | 2021-08-02 09:39 | NUR ---
MS ODEN OPENING NOTES Pt REFUSED AM LABS AND AM LOVENOX. Pt STATES "NO NEEDLES", WILL CONTINUE TO MONITOR. Addendum: 08/02/21 at 0941 by JENNIFER PETTIT RN MS ZAYAS OPENING NOTES
[2021-08-02 12:18] LABS: BASOPHILS % (AUTO) 0.6 % (0.0-2.0); EOSINOPHILS % (AUTO) 1.3 % (0.0-6.0); HEMATOCRIT 28 % (39-51); HEMOGLOBIN 9.1 g/dL (13.5-17.5); LYMPHOCYTES # (AUTO) 0.8 K/uL (0.8-4.8); LYMPHOCYTES % (AUTO) 18.1 % (20.0-44.0); MEAN CORPUSCULAR HGB CONC 33 g/dl (31.0-36.0); MEAN CORPUSCULAR VOLUME 92 fL (80-96); MONOCYTES # (AUTO) 0.3 K/uL (0.1-1.30); MONOCYTES % (AUTO) 6.6 % (2.0-12.0); NEUTROPHILS # (AUTO) 3.2 K/uL (1.8-8.9); NEUTROPHILS % (AUTO) 73.4 % (43.0-81.0); PLATELET COUNT (AUTO) 230 K/uL (150-450); RED BLOOD CELL COUNT(AUTO) 3.01 MIL/uL (4.5-6.0); WHITE BLOOD COUNT (AUTO) 4.4 K/uL (4.3-11.0)
[2021-08-02] MEDS: ENSURE ENLIVE 237 ML LIQUID (VANILLA) PO SCH ×2 (12:25→18:00)
--- NOTE | 2021-08-02 12:26 | NUR ---
MS RN NOTES Pt REFUSED HOSPITAL ENSURE VANILLA FLAVORED. DAUGHTER BROUGHT IN ENSURE FROM HOME, CHOCOLATE FLAVOR. WILL CONTINUE TO MONITOR.
[2021-08-02 12:44] LABS: CALCIUM, SERUM 7.3 mg/dL (8.5-10.1); CREATININE 0.8 mg/dL (0.6-1.3); POTASSIUM 2.9 mmol/L (3.5-5.1)
[2021-08-02] MEDS ORDERED: POTASSIUM CHLORIDE 10 MEQ/50 ML PREMIXED IVPB FOR PERIPHERAL LINE IV ONE (14:00)
[2021-08-02] MEDS ORDERED: POTASSIUM CL. PREMIX PERIPHER. 0 ML ONE (14:01)
[2021-08-02] MEDS: POTASSIUM CL. PREMIX PERIPHER. 50 ML IV SCH ×5 (14:59→23:03)
[2021-08-02] MEDS: APIXABAN 5 MG TABLET PO SCH (16:42)
--- NOTE | 2021-08-02 18:30 | NUR ---
RN CLOSING NOTES Pt IS IN BED RESTING. HE IS A/O x3. Pt IS ON ROOM AIR AND TOLERATING WELL. NO SIGNS OF DISTRESS OR PAIN NOTICED. IV SITE ON R HAND, PATENT AND INTACT AT THIS TIME. Pt HAS GLEASON THAT IS DRAINING TO GRAVITY CLEAR AND YELLOW URINE. Pt's FAMILY IS CURRENTLY AT BEDSIDE. SAFETY MEASURES ARE IN PLACE: BED IS LOCKED AND IN LOWEST POSITION, SIDE RAILS x3, BEDSIDE TABLE AND CALL LIGHT ARE WITHIN REACH. BED ALARM ON. ALL NEEDS MET. WILL ENDORSE TO ONCOMING SHIFT.
--- NOTE | 2021-08-02 19:30 | NUR ---
MS RN OPENING NOTE RECEIVED PT RESTING IN BED, EASILY AROUSABLE. A/O X 2-3. PT STABLE ON ROOM AIR. NO SOB OR S/S OF RESPIRATORY DISTRESS. IV ACCESS ON RIGHT HAND, INTACT AND PATENT. GLEASON CATHETER IN PLACE DRAINING CLEAR, YELLOW URINE BY GRAVITY. SAFETY PRECAUTIONS IN PLACE. BED IN LOWEST LOCKED POSITION, HOB ELEVATED, SIDE RIALS UP X2, AND CALL LIGHT AND TABLE WITHIN REACH. WILL CONTINUE WITH PLAN OF CARE.
[2021-08-02 20:00] VITALS: BP 112/48
[2021-08-02] MEDS: TAMSULOSIN 0.4 MG CAP.SR.24H PO SCH (21:11)
[2021-08-02] MEDS: ATORVASTATIN 40 MG TABLET PO SCH (21:11)
[2021-08-02] MEDS ORDERED: POTASSIUM CL. PREMIX PERIPHER. 50 ML ONE (22:59)
[2021-08-03] MEDS: DIVALPROEX SODIUM 125 MG CAP.SPRINK PO SCH ×3 (05:24→21:35)
--- NOTE | 2021-08-03 06:48 | NUR ---
MS RN CLOSING NOTE PT AWAKE IN BED. A/O X 2-3. PT STABLE ON ROOM AIR. NO SOB OR S/S OF RESPIRATORY DISTRESS. IV ACCESS ON RIGHT HAND, INTACT AND PATENT. GLEASON CATHETER IN PLACE DRAINING CLEAR, YELLOW URINE BY GRAVITY. ALL NEEDS MET AT THIS TIME. SAFETY PRECAUTIONS IN PLACE AT ALL TIMES. BED IN LOWEST LOCKED POSITION, HOB ELEVATED, SIDE RIALS UP X2, AND CALL LIGHT AND TABLE WITHIN REACH. WILL ENDORSE TO ONCOMING NURSE FOR RADHA.
--- NOTE | 2021-08-03 07:30 | NUR ---
MS RN OPENING NOTES RECEIVED PATIENT ON BED AWAKE AND A/O X3. ON ROOM AIR TOLERATING WELL. NO SOB NOTED. NOT IN DISTRESS. WITH NO COMPLAINTS OF PAIN OR DISCOMFORT AT THIS TIME. WITH IV ACCESS AT RIGHT HAND G22, SALINE LOCKED, PATENT AND INTACT. WITH GLEASON CATHETER IN PLACED DRAINING WELL CLEAR YELLOW URINE. SAFETY MEASURES IN PLACED. CALL LIGHT WITHIN REACH. BED ON LOWEST LOCKED POSITION. SIDE RAILS UP X2. WILL CONTINUE TO MONITOR.
[2021-08-03] MEDS: ASCORBIC ACID 500 MG TABLET PO SCH (08:20)
[2021-08-03] MEDS: PANTOPRAZOLE 40 MG TABLET.DR PO SCH (08:22)
[2021-08-03] MEDS: FOLIC ACID 1 MG TABLET PO SCH (08:22)
[2021-08-03] MEDS: BICALUTAMIDE 50 MG TABLET PO SCH (08:22)
[2021-08-03] MEDS: MULTIVIT W/MINERALS 1 TAB TABLET PO SCH (08:22)
[2021-08-03] MEDS: SENNOSIDES 8.6 MG TABLET PO SCH ×2 (08:22→17:08)
[2021-08-03] MEDS: APIXABAN 5 MG TABLET PO SCH ×2 (08:23→17:09)
[2021-08-03] MEDS: FERROUS SULFATE (325 MG) 325 MG/TAB TABLET PO SCH (08:23)
[2021-08-03] MEDS: DOCUSATE SODIUM 100 MG CAPSULE PO SCH ×2 (08:29→17:08)
[2021-08-03 08:32] VITALS: BP 116/53
[2021-08-03] MEDS: ENSURE ENLIVE 237 ML LIQUID (VANILLA) PO SCH ×2 (12:53→17:09)
[2021-08-03 15:09] LABS: BASOPHILS % (AUTO) 0.7 % (0.0-2.0); EOSINOPHILS % (AUTO) 2.4 % (0.0-6.0); HEMATOCRIT 26 % (39-51); HEMOGLOBIN 8.6 g/dL (13.5-17.5); LYMPHOCYTES # (AUTO) 0.8 K/uL (0.8-4.8); LYMPHOCYTES % (AUTO) 19.9 % (20.0-44.0); MEAN CORPUSCULAR HGB CONC 32 g/dl (31.0-36.0); MEAN CORPUSCULAR VOLUME 93 fL (80-96); MONOCYTES # (AUTO) 0.3 K/uL (0.1-1.30); MONOCYTES % (AUTO) 8.9 % (2.0-12.0); NEUTROPHILS # (AUTO) 2.7 K/uL (1.8-8.9); NEUTROPHILS % (AUTO) 68.1 % (43.0-81.0); PLATELET COUNT (AUTO) 242 K/uL (150-450); RED BLOOD CELL COUNT(AUTO) 2.85 MIL/uL (4.5-6.0); WHITE BLOOD COUNT (AUTO) 3.9 K/uL (4.3-11.0)
[2021-08-03 15:35] LABS: CALCIUM, SERUM 7.2 mg/dL (8.5-10.1); CREATININE 0.9 mg/dL (0.6-1.3); POTASSIUM 3.1 mmol/L (3.5-5.1)
--- NOTE | 2021-08-03 18:37 | NUR ---
MS RN CLOSING NOTES PATIENT ON BED AWAKE AND A/O X3. ON ROOM AIR TOLERATING WELL. NO SOB NOTED. NOT IN DISTRESS. WITH NO COMPLAINTS OF PAIN OR DISCOMFORT AT THIS TIME. WITH IV ACCESS AT RIGHT HAND G22, SALINE LOCKED, PATENT AND INTACT. WITH GLEASON CATHETER IN PLACED DRAINING WELL CLEAR YELLOW URINE AT 500ML. SAFETY MEASURES IN PLACED. CALL LIGHT WITHIN REACH. BED ON LOWEST LOCKED POSITION. SIDE RAILS UP X2. WILL ENDORSE TO NEXT SHIFT FOR RADHA.
--- NOTE | 2021-08-03 19:35 | NUR ---
RN NOTES RECEIVED PATIENT AWAKE ON HIS BED, A/OX3, HARD OF HEARING DENIES PAIN, F/C DRAINING CLEAR YELLOW URINE, CALL LIGHT WITHIN REACH, [id number], PT. NEEDS ATTENDED
[2021-08-03 20:00] VITALS: BP 123/56
[2021-08-03] MEDS ORDERED: POTASSIUM CHLORIDE 20 MEQ TAB.PRT.SR PO ONE (20:00)
[2021-08-03] MEDS: TAMSULOSIN 0.4 MG CAP.SR.24H PO SCH (21:35)
[2021-08-03] MEDS: ATORVASTATIN 40 MG TABLET PO SCH (21:35)
[2021-08-04] MEDS: DIVALPROEX SODIUM 125 MG CAP.SPRINK PO SCH ×2 (05:11→13:09)
--- NOTE | 2021-08-04 06:40 | NUR ---
RN NOTES AWAKE, DENIES PAIN, NO SOB, MORNING CARE RENDERED, CALL LIGHT WITHIN REACH, [id number], PT. NEEDS ATTENDED
--- NOTE | 2021-08-04 07:23 | NUR ---
RN OPENING NOTE- PT RESTING IN BED,. A/O X 2-3. PT STABLE ON ROOM AIR. NO SOB OR S/S OF RESPIRATORY DISTRESS. IV ACCESS ON RIGHT HAND, #22G . GLEASON CATHETER IN PLACE. SAFETY PRECAUTIONS IN PLACE. BED IN LOWEST LOCKED POSITION, HOB ELEVATED, SIDE RIALS UP X2, AND CALL LIGHT AND TABLE WITHIN REACH. WILL CONTINUE WITH PLAN OF CARE.
[2021-08-04 08:00] VITALS: BP 111/52
[2021-08-04] MEDS: DOCUSATE SODIUM 100 MG CAPSULE PO SCH (08:51)
[2021-08-04] MEDS: ASCORBIC ACID 500 MG TABLET PO SCH (08:51)
[2021-08-04] MEDS: PANTOPRAZOLE 40 MG TABLET.DR PO SCH (08:51)
[2021-08-04] MEDS: FERROUS SULFATE (325 MG) 325 MG/TAB TABLET PO SCH (08:51)
[2021-08-04] MEDS: FOLIC ACID 1 MG TABLET PO SCH (08:51)
[2021-08-04] MEDS: MULTIVIT W/MINERALS 1 TAB TABLET PO SCH (08:51)
[2021-08-04] MEDS: BICALUTAMIDE 50 MG TABLET PO SCH (08:51)
[2021-08-04] MEDS: SENNOSIDES 8.6 MG TABLET PO SCH (08:51)
[2021-08-04] MEDS: APIXABAN 5 MG TABLET PO SCH (08:52)
[2021-08-04 12:03] LABS: BASOPHILS % (AUTO) 0.6 % (0.0-2.0); EOSINOPHILS % (AUTO) 2.4 % (0.0-6.0); HEMATOCRIT 27 % (39-51); HEMOGLOBIN 8.9 g/dL (13.5-17.5); LYMPHOCYTES # (AUTO) 0.8 K/uL (0.8-4.8); LYMPHOCYTES % (AUTO) 20.8 % (20.0-44.0); MEAN CORPUSCULAR HGB CONC 33 g/dl (31.0-36.0); MEAN CORPUSCULAR VOLUME 92 fL (80-96); MONOCYTES # (AUTO) 0.3 K/uL (0.1-1.30); MONOCYTES % (AUTO) 7.6 % (2.0-12.0); NEUTROPHILS # (AUTO) 2.7 K/uL (1.8-8.9); NEUTROPHILS % (AUTO) 68.6 % (43.0-81.0); PLATELET COUNT (AUTO) 265 K/uL (150-450); RED BLOOD CELL COUNT(AUTO) 2.94 MIL/uL (4.5-6.0); WHITE BLOOD COUNT (AUTO) 3.9 K/uL (4.3-11.0)
[2021-08-04] MEDS: ENSURE ENLIVE 237 ML LIQUID (VANILLA) PO SCH (13:09)
[2021-08-04 14:17] LABS: CALCIUM, SERUM 7.4 mg/dL (8.5-10.1); CREATININE 0.8 mg/dL (0.6-1.3); POTASSIUM 3.3 mmol/L (3.5-5.1)
--- NOTE | 2021-08-04 14:30 | NUR ---
RN DC NOTE- PT DC AT THIS TIME TO HOME W FAMILY . HOME HOSPICE TO EVALUATE AND ASSIST W CARE. VS STABLE, IV SITE DC'D. GLEASON CATHETER INDWELLING AND EMPTIED. REVIEW OF ORDERS GIVEN TO FAMILY. ID [id number] REMOVED. ESCORTED OFF UNIT BY STAFF AND FAMILY.
== END 2021-08-04 14:15 | disposition hospice, home (50) | DRG 374 ==
LOC: ER 17:59 → MEDSG1 07-19 00:06 → MED 07-22 01:59
PROVIDERS: ADMIT Registered Nurse; ATTEND Internal Medicine
PROC: 0W993ZZ Drainage of Right Pleural Cavity, Percutaneous Approach (ICD-10-PCS; principal; 2021-07-28)
PROC: 07DR3ZX Extraction of Iliac Bone Marrow, Percutaneous Approach, Diagnostic (ICD-10-PCS; 2021-07-31)
PROC: 079T3ZX Drainage of Bone Marrow, Percutaneous Approach, Diagnostic (ICD-10-PCS; 2021-07-31)
DX: C78.5 Secondary malignant neoplasm of large intestine and rectum (principal); E43 Unspecified severe protein-calorie malnutrition; C79.51 Secondary malignant neoplasm of bone; N17.9 Acute kidney failure, unspecified; C78.01 Secondary malignant neoplasm of right lung; N13.30 Unspecified hydronephrosis; J91.0 Malignant pleural effusion; J98.11 Atelectasis; C34.11 Malignant neoplasm of upper lobe, right bronchus or lung; E87.0 Hyperosmolality and hypernatremia; K56.51 Intestinal adhesions [bands], with partial obstruction; C61 Malignant neoplasm of prostate; K21.9 Gastro-esophageal reflux disease without esophagitis; Z20.822 Contact with and (suspected) exposure to COVID-19; I50.9 Heart failure, unspecified; I11.0 Hypertensive heart disease with heart failure; N32.0 Bladder-neck obstruction; I48.91 Unspecified atrial fibrillation; N40.0 Benign prostatic hyperplasia without lower urinary tract symptoms; I51.3 Intracardiac thrombosis, not elsewhere classified; J43.9 Emphysema, unspecified; D64.9 Anemia, unspecified; E87.6 Hypokalemia; Z87.891 Personal history of nicotine dependence; Z86.73 Personal history of transient ischemic attack (TIA), and cerebral infarction without residual deficits
CPT/HCPCS: 36415; 71250-TC; 71260-TC; 74018; 74250-TC; 76942-TC; 80048-TC; 80053-TC; 80076-TC; 80164-TC; 81001; 82232; 82378; 82728-TC; 82784; 83540-TC; 83690-TC; 83735-TC; 84100-TC; 84132-TC; 84153-TC; 84154-TC; 84155; 84165; 84403; 84439-TC; 84443-TC; 85025-TC; 85610-TC; 85730-TC; 86334; 87040-TC; 87081-TC; 87086-TC; 88305-TC; 88341; 88342; 93307-TC; C9113; G0378; J1650; J2060; J2270; J2405; J3480; J3490; J7030; J7050; Q9963; Q9967; U0003